=== PATIENT | female | born 1940 | race Caucasian/White ===

== ENCOUNTER → 2016-03-06 | Outpatient (CLI) | payer MEDICARE | LOC: RAD 12:07 | PROVIDERS: ATTEND Family Medicine | DX: M25.551 Pain in right hip (principal) ==

== ENCOUNTER → 2016-06-21 | Outpatient (CLI) | payer MEDICARE | LOC: WI 09:04 | PROVIDERS: ATTEND Family Medicine | DX: Z12.31 Encounter for screening mammogram for malignant neoplasm of breast (principal); Z78.0 Asymptomatic menopausal state; M85.88 Other specified disorders of bone density and structure, other site | CPT/HCPCS: 77080; G0202; 77067 ==

== ENCOUNTER → 2017-06-09 | Outpatient (CLI) | payer MEDICARE ==
--- NOTE | 2017-06-09 12:27 | RADIOLOGY REPORT (SQ) ---
EXAM DESCRIPTION: CHEST 2 VIEWS COMPLETED DATE/TIME: 06/09/2017 10:26 am REASON FOR STUDY: CHRONIC OBSTRUCTIVE PULMONARY DISEASE W (ACUTE) EXACERBATION COMPARISON: 11/26/2013 EXAM PARAMETERS: NUMBER OF VIEWS: two views TECHNIQUE: Digital Frontal and Lateral radiographic views of the chest acquired. RADIATION DOSE: NA LIMITATIONS: none FINDINGS: LUNGS AND PLEURA: No opacities, masses or pneumothorax. No pleural effusion. MEDIASTINUM AND HILAR STRUCTURES: No masses or contour abnormalities. HEART AND VASCULAR STRUCTURES: Heart normal size. No evidence for failure. BONES: No acute findings. HARDWARE: None in the chest. OTHER: No other significant finding. IMPRESSION: NO ACUTE RADIOGRAPHIC FINDING IN THE CHEST. TECHNICAL DOCUMENTATION: JOB ID: [id number] [employer]- All Rights Reserved Reading location - IP/workstation name: [email or web address]
== END ==
LOC: RAD 10:09
PROVIDERS: ATTEND Family Medicine
DX: J44.1 Chronic obstructive pulmonary disease with (acute) exacerbation (principal)
CPT/HCPCS: 71046

== ENCOUNTER → 2017-07-16 | Outpatient (CLI) | payer MEDICARE ==
--- NOTE | 2017-07-16 13:05 | RADIOLOGY REPORT (SQ) ---
EXAM DESCRIPTION: CT CHEST WITHOUT COMPLETED DATE/TIME: 07/16/2017 10:14 am REASON FOR STUDY: EMPHYSEMA (J43.9) J43.9 EMPHYSEMA, UNSPECIFIED COMPARISON: CT chest 06/15/2011 Chest films 06/09/2017 TECHNIQUE: CT scan performed of the chest without intravenous contrast. Images reviewed with lung, soft tissue and bone windows. Reconstructed coronal and sagittal MPR images reviewed. All images st ored on PACS. All CT scanners at this facility use dose modulation, iterative reconstruction, and/or weight based d osing when appropriate to reduce radiation dose to as low as reasonably achievable (ALARA). [facility]: Dose Right [facility]: CareDose [facility]: Dose Right [facility]: Teradose 4D [facility]: [id number] RADIATION DOSE: CT Rad equipment meets quality standard of care and radiation dose reduction techniq ues were employed. CTDIvol: 3.5 mGy. DLP: 140 mGy-cm. mGy. LIMITATIONS: No technical limitations. FINDINGS: LUNGS AND PLEURA: Lungs have enlarged centrilobular airspaces particularly at the right kena ng apex worrisome for obstructive disease. Minimal left posterior costophrenic sulcus atelectasis. No pleural effusion. No pulmonary nodules. HILAR AND MEDIASTINAL STRUCTURES: No identified masses or abnormal nodes. No obvious aneurysm. HEART AND VASCULAR STRUCTURES: No aneurysm. No pericardial effusion. UPPER ABDOMEN: No significant findings. Limited exam. THYROID AND OTHER SOFT TISSUES: No masses. No adenopathy. BONES: No acute changes. Mid thoracic disc space loss of height HARDWARE: None in the chest. OTHER: No other significant findings. IMPRESSION: Minimal atelectasis in the left posterior costophrenic sulcus. Mild changes of obstructive lung disease at both apices TECHNICAL DOCUMENTATION: JOB ID: [id number] Quality ID # [id number]: Final reports with documentation of one or more dose reduction techniques (e.g., Au tomated exposure control, adjustment of the mA and/or kV according to patient size, use of iterative reconstruction technique) 2010 [employer]- All Rights Reserved Reading location - IP/workstation name: [email or web address]
== END ==
LOC: RAD 09:40
PROVIDERS: ATTEND Internal Medicine Pulmonary Disease
DX: J43.9 Emphysema, unspecified (principal)
CPT/HCPCS: 71250

== ENCOUNTER 2017-09-18 16:08 | Emergency (ER) | payer MEDICARE ==
[2017-09-18] MEDS ORDERED: NORMAL SALINE 1000 ML 1,000 ML IV ONE (16:26)
[2017-09-18] MEDS ORDERED: KETOROLAC TROMETHAMINE INJ/PF 30 MG/1 ML SDV IV ONE (16:26)
[2017-09-18] MEDS ORDERED: ONDANSETRON HCL INJ/PF 4 MG/2 ML SDV IV ONE (16:26)
--- NOTE | 2017-09-18 16:29 | ER Document Report ---
ED Medical Screen (RME) - General Chief Complaint: Headache Stated Complaint: HEADACHE Time Seen by Provider: 09/18/17 16:26 Mode of Arrival: Wheelchair TRAVEL OUTSIDE OF THE [place] IN LAST 30 DAYS: No - HPI Patient complains to provider of: JULIAN; vomiting Onset: Yesterday - pt with onset of JULIAN yesterday and vomiting times 5 which started earliler today. Doesn't normally get JULIAN. - Related Data Allergies/Adverse Reactions: codeine [Codeine] Allergy (Verified 09/18/17 16:25) Past Medical History - Social History Frequency of alcohol use: None Drug Abuse: None - Past Medical History Cardiac Medical History: Reports: Hx Hypercholesterolemia Pulmonary Medical History: Reports: Hx Asthma, Hx Bronchitis, Hx COPD Denies: Hx Tuberculosis Endocrine Medical History: Reports: Hx Hypothyroidism Renal/ Medical History: Denies: Hx Peritoneal Dialysis Psychiatric Medical History: Reports: Hx Depression Past Surgical History: Reports: Hx Cholecystectomy, Hx Hysterectomy, Hx Orthopedic Surgery - discectomy cervical, Hx Tonsillectomy. Denies: Hx Section, Hx Pacemaker - Immunizations Hx Diphtheria, Pertussis, Tetanus Vaccination: No Physical Exam - Vital signs Vitals: Temp Pulse Resp BP Pulse Ox 99.6 F 99 20 140/83 H 100 09/18/17 16:17 09/18/17 16:17 09/18/17 16:17 09/18/17 16:17 09/18/17 16:17 Course - Vital Signs Vital signs: Temp Pulse Resp BP Pulse Ox 99.6 F 99 20 140/83 H 100 09/18/17 16:17 09/18/17 16:17 09/18/17 16:17 09/18/17 16:17 09/18/17 16:17 Doctor's Discharge - Discharge Referrals: TRACY RAT MD [Primary Care Provider] - Follow up as needed
--- NOTE | 2017-09-18 17:20 | RADIOLOGY REPORT (SQ) ---
EXAM DESCRIPTION: CT HEAD WITHOUT COMPLETED DATE/TIME: 09/18/2017 5:11 pm REASON FOR STUDY: velasquez COMPARISON: September 2012 TECHNIQUE: Axial images acquired through the brain without intravenous contrast. Images reviewed wi th bone, brain and subdural windows. Additional sagittal and coronal reconstructions were generated. Images stored on PACS. All CT scanners at this facility use dose modulation, iterative reconstruction, and/or weight based d osing when appropriate to reduce radiation dose to as low as reasonably achievable (ALARA). [facility]: Dose Right [facility]: CareDose [facility]: Dose Right [facility]: Teradose 4D [facility]: Neumitra RADIATION DOSE: CT Rad equipment meets quality standard of care and radiation dose reduction techniq ues were employed. CTDIvol: 53.2 mGy. DLP: 964 mGy-cm. mGy. LIMITATIONS: None. FINDINGS: VENTRICLES: Prominent. CEREBRUM: No masses. No hemorrhage. No midline shift. Areas of low density in the white matter mos t likely due to chronic micro-vascular ischemic change. No evidence for acute infarction. CEREBELLUM: No masses. No hemorrhage. No alteration of density. No evidence for acute infarction. EXTRAAXIAL SPACES: Mild age-related involutional change. No fluid collections. No masses. ORBITS AND GLOBE: No intra- or extraconal masses. Normal contour of globe without masses. CALVARIUM: No fracture. PARANASAL SINUSES: No fluid or mucosal thickening. SOFT TISSUES: No mass or hematoma. OTHER: Bilateral basal ganglia calcifications are again identified IMPRESSION: MILD CHRONIC CHANGES OF ATROPHY AND MICROVASCULAR ISCHEMIA. NO ACUTE PROCESS. EVIDENCE OF ACUTE STROKE: NO. TECHNICAL DOCUMENTATION: JOB ID: [id number] Quality ID # [id number]: Final reports with documentation of one or more dose reduction techniques (e.g., Au tomated exposure control, adjustment of the mA and/or kV according to patient size, use of iterative reconstruction technique) 2010 [employer]- All Rights Reserved Reading location - IP/workstation name: [email or web address]
[2017-09-18 17:31] LABS: ABSOLUTE BASOPHILS # (AUTO) 0.1 10^3/uL (0.0-0.2); ABSOLUTE EOSINOPHILS # (AUTO) 0.2 10^3/uL (0.0-0.6); ABSOLUTE LYMPHOCYTES (AUTO) 1.2 10^3/uL (0.5-4.7); ABSOLUTE MONOCYTES (AUTO) 0.8 10^3/uL (0.1-1.4); ABSOLUTE NEUT (AUTO) 8.5 10^3/uL (1.7-8.2); BASOPHILS % (AUTO) 0.7 % (0-2); EOSINOPHILS % (AUTO) 2.2 % (0-6); HEMATOCRIT 42.4 % (36.0-47.0); HEMOGLOBIN 14.4 g/dL (12.0-15.5); LYMPHOCYTES % (AUTO) 11.5 % (13-45); MEAN CORPUSCULAR HEMOGLOBIN 30.4 pg (27.0-33.4); MEAN CORPUSCULAR HGB CONC 33.9 g/dL (32.0-36.0); MEAN CORPUSCULAR VOLUME 90 fl (80-97); MONOCYTES % (AUTO) 7.4 % (3-13); PLATELET COUNT 256 10^3/uL (150-450); RED BLOOD COUNT 4.73 10^6/uL (3.72-5.28); RED CELL DISTRIBUTION WIDTH 12.8 % (11.5-14.0); SEGMENTED NEUTROPHILS % (AUTO) 78.2 % (42-78); TOTAL CELLS COUNTED % (AUTO) 100 %; WHITE BLOOD COUNT 10.8 10^3/uL (4.0-10.5)
[2017-09-18 17:49] LABS: ALANINE AMINOTRANSFERASE 27 U/L (9-52); ALBUMIN 4.7 g/dL (3.5-5.0); ALKALINE PHOSPHATASE 78 U/L (38-126); ANION GAP 9 (5-19); ASPARTATE AMINO TRANSFERASE 33 U/L (14-36); BILIRUBIN,DIRECT 0.5 mg/dL (0.0-0.4); BILIRUBIN,TOTAL 0.7 mg/dL (0.2-1.3); BLOOD UREA NITROGEN 18 mg/dL (7-20); CALCIUM 9.7 mg/dL (8.4-10.2); CARBON DIOXIDE 26 mmol/L (22-30); CHLORIDE 109 mmol/L (98-107); GLUCOSE 99 mg/dL (75-110); POTASSIUM 4.7 mmol/L (3.6-5.0); SODIUM 144.2 mmol/L (137-145); TOTAL PROTEIN 7.9 g/dL (6.3-8.2)
[2017-09-18 19:06] VITALS: BP 147/89
[2017-09-18] MEDS ORDERED: PROMETHAZINE HCL 25 MG TABLET PO ONE (19:50)
--- NOTE | 2017-09-18 20:01 | ER Document Report ---
ED Headache - General Chief Complaint: Headache Stated Complaint: HEADACHE Time Seen by Provider: 09/18/17 16:26 Mode of Arrival: Wheelchair Notes: Patient is a 76 year old female that comes to the ED for chief complaint of headache. Headache started yesterday, worsened today, she states she vomited 5 times in the past day. She does not usually get headaches. She denies fever chills, head injury, pain is in the back of her head radiating around to the front. She states headache started out very mild and slowly progressed to become worse. She was treated with Toradol and Zofran in triage, she states her headache is almost completely gone and she finally feels much better. She admits she has not slept well the past couple of nights. She is not on a blood thinner. Past medical history of hypothyroidism, arthritis, takes meloxicam and oxycodone. TRAVEL OUTSIDE OF THE [place] IN LAST 30 DAYS: No - Related Data Allergies/Adverse Reactions: codeine [Codeine] Allergy (Verified 09/18/17 16:25) Past Medical History - General Information source: Patient - Social History Smoking Status: Former Smoker Frequency of alcohol use: None Drug Abuse: None Lives with: Alone Family History: Reviewed & Not Pertinent Patient has suicidal ideation: No Patient has homicidal ideation: No - Past Medical History Cardiac Medical History: Reports: Hx Hypercholesterolemia Pulmonary Medical History: Reports: Hx Asthma, Hx Bronchitis, Hx COPD Denies: Hx Tuberculosis Endocrine Medical History: Reports: Hx Hypothyroidism Renal/ Medical History: Denies: Hx Peritoneal Dialysis Psychiatric Medical History: Reports: Hx Depression Past Surgical History: Reports: Hx Cholecystectomy, Hx Hysterectomy, Hx Orthopedic Surgery - discectomy cervical, Hx Tonsillectomy. Denies: Hx Section, Hx Pacemaker - Immunizations Hx Diphtheria, Pertussis, Tetanus Vaccination: No Hx Pneumococcal Vaccination: 02/18/08 Review of Systems - Review of Systems Constitutional: No symptoms reported EENT: No symptoms reported Cardiovascular: No symptoms reported Respiratory: No symptoms reported Gastrointestinal: See HPI Genitourinary: No symptoms reported Female Genitourinary: No symptoms reported Musculoskeletal: No symptoms reported Skin: No symptoms reported Hematologic/Lymphatic: No symptoms reported Neurological/Psychological: See HPI Physical Exam - Vital signs Vitals: Temp Pulse Resp BP Pulse Ox 99.6 F 99 20 140/83 H 100 09/18/17 16:17 09/18/17 16:17 09/18/17 16:17 09/18/17 16:17 09/18/17 16:17 - Notes Notes: GENERAL: Alert, interacts well. No acute distress. HEAD: Normocephalic, atraumatic. EYES: Pupils equal, round, and reactive to light. Extraocular movements intact. ENT: Oral mucosa moist, tongue midline. NECK: Full range of motion. Supple. Trachea midline. LUNGS: Clear to auscultation bilaterally, no wheezes, rales, or rhonchi. No respiratory distress. HEART: Regular rate and rhythm. No murmur ABDOMEN: Soft, non-tender. Non-distended. Bowel sounds present in all 4 quadrants. EXTREMITIES: Moves all 4 extremities spontaneously. No edema, normal radial and dorsalis pedis pulses bilaterally. No cyanosis. BACK: no cervical, thoracic, lumbar midline tenderness. No saddle anesthesia, normal distal neurovascular exam. NEUROLOGICAL: Alert and oriented x3. Normal speech. [cranial nerves II through XII grossly intact]. PSYCH: Normal affect, normal mood. SKIN: Warm, dry, normal turgor. No rashes or lesions noted. Course - Re-evaluation Re-evalutation: Patient smiling and well-appearing. She states her headache is all completely gone, she feels much better, she wants to go home. I did discuss that her CAT scan was negative but her headache onset was more than 6 hours ago therefore I could not rule out subarachnoid hemorrhage at this time. No nuchal rigidity, fever, or other concerning abnormality suggesting meningitis. However because of gradual symptom onset, lack of sleep, and stressors it does seem more likely that this was migraine in nature. 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 Patient is requesting something by mouth to go home with and sleep, she states that if her headache comes back or she worsens in anyway she will return, she states that she does not want any more evaluation including lumbar puncture at this time. CBC shows mild leukocytosis with elevation of neutrophils, nonspecific with patient's reported vomiting. No fever. Chemistry generally unremarkable. Patient will be discharged with return precautions. Patient states understanding and agreement. - Vital Signs Vital signs: Temp Pulse Resp BP Pulse Ox 98.2 F 80 18 147/89 H 97 09/18/17 19:00 09/18/17 19:00 09/18/17 19:00 09/18/17 19:00 09/18/17 19:00 - Laboratory Result Diagrams: 09/18/17 16:50 09/18/17 16:50 Laboratory results interpreted by me: 09/18/17 09/18/17 16:50 16:50 WBC 10.8 H Seg Neutrophils % 78.2 H Lymphocytes % 11.5 L Absolute Neutrophils 8.5 H Chloride 109 H Est GFR (Non-Af Amer) 58 L Direct Bilirubin 0.5 H Discharge - Discharge Clinical Impression: Headache Qualifiers: Headache type: unspecified Headache chronicity pattern: acute headache Intractability: not intractable Qualified Code(s): R51 - Headache Vomiting Qualifiers: Vomiting type: unspecified Vomiting Intractability: non-intractable Nausea presence: with nausea Qualified Code(s): R11.2 - Nausea with vomiting, unspecified Condition: Stable Disposition: HOME, SELF-CARE Additional Instructions: Your CAT scan of the head does not show any concerning findings. Your neurological exam is normal. Your symptoms and response to treatment are most suggestive of a migraine. Recommendation is to follow-up with your primary care for additional evaluation and management of headaches. Return immediately if you have any concerning or worsening symptoms including severe headache, returned vomiting, fever of 100.4 or greater, weakness or numbness on one side of your body, or any other concerning or worsening symptoms. Referrals: TRACY ART MD [ACTIVE STAFF] - Follow up as needed
== END 2017-09-18 20:03 | disposition home or self-care (01) ==
LOC: ER 16:08
DX: R51 Headache (principal); R11.2 Nausea with vomiting, unspecified; D72.828 Other elevated white blood cell count; J44.9 Chronic obstructive pulmonary disease, unspecified; M19.90 Unspecified osteoarthritis, unspecified site; Z79.1 Long term (current) use of non-steroidal anti-inflammatories (NSAID); Z79.891 Long term (current) use of opiate analgesic; Z87.891 Personal history of nicotine dependence; Z88.5 Allergy status to narcotic agent
CPT/HCPCS: 99284; 96361; 96374; 96375; 36415; 85025; 80053; 70450; J1885; A9270; J2405; J7030

== ENCOUNTER 2017-09-19 11:49 | Inpatient (IN) | payer MEDICARE ==
[2017-09-19] MEDS ORDERED: NORMAL SALINE 1000 ML 1,000 ML IV ONE (12:16)
[2017-09-19] MEDS ORDERED: FENTANYL CITRATE INJ/PF 100 MCG/2 ML AMPUL IV ONE (12:16)
[2017-09-19] MEDS ORDERED: PROCHLORPERAZINE EDISYLATE INJ 10 MG/2 ML VIAL IV ONE (12:16)
--- NOTE | 2017-09-19 12:20 | ER Document Report ---
ED Medical Screen (RME) - General Chief Complaint: Nausea/Vomiting Stated Complaint: VOMITING/NASEUA Time Seen by Provider: 09/19/17 12:06 Notes: 76-year-old female patient to the emergency department for evaluation of headache and nausea and vomiting. Patient was seen here yesterday. Had a CT scan which was negative. States that she continues to have headache and vomiting. Was told there may be a possibility for needing to get a spinal tap and even admitting her to the hospital but patient states that she needed to go so she left. Continues to have a severe headache. Her back is hurting but has chronic back pain but it it is getting worse. I have greeted and performed a rapid initial assessment of this patient. A comprehensive ED assessment and evaluation of the patient, analysis of test results and completion of the medical decision making process will be conducted by additional ED providers. TRAVEL OUTSIDE OF THE [place] IN LAST 30 DAYS: No - HPI Onset: Yesterday - Related Data Allergies/Adverse Reactions: codeine [Codeine] Allergy (Verified 09/18/17 16:25) Past Medical History - Social History Chew tobacco use (# tins/day): No Frequency of alcohol use: None Drug Abuse: None - Past Medical History Cardiac Medical History: Reports: Hx Hypercholesterolemia Pulmonary Medical History: Reports: Hx Asthma, Hx Bronchitis, Hx COPD Denies: Hx Tuberculosis Endocrine Medical History: Reports: Hx Hypothyroidism Renal/ Medical History: Denies: Hx Peritoneal Dialysis Psychiatric Medical History: Reports: Hx Depression Past Surgical History: Reports: Hx Cholecystectomy, Hx Hysterectomy, Hx Orthopedic Surgery - discectomy cervical, Hx Tonsillectomy. Denies: Hx Section, Hx Pacemaker - Immunizations Hx Diphtheria, Pertussis, Tetanus Vaccination: No Physical Exam - Vital signs Vitals: Temp Pulse Resp BP Pulse Ox 99.1 F 104 H 18 140/84 H 97 09/19/17 11:59 09/19/17 11:59 09/19/17 11:59 09/19/17 11:59 09/19/17 11:59 Interpretation: Normal - HEENT Head: Normocephalic, Atraumatic Eyes: Normal Pupils: PERRL - Respiratory Respiratory status: No respiratory distress Chest status: Nontender Breath sounds: Normal Chest palpation: Normal - Cardiovascular Rhythm: Regular Heart sounds: Normal auscultation Murmur: No - Neurological Neuro grossly intact: Yes Cognition: Normal Orientation: AAOx4 Helen Coma Scale Eye Opening: Spontaneous Helen Coma Scale Verbal: Oriented Darryl Coma Scale Motor: Obeys Commands Darryl Coma Scale Total: 15 Speech: Normal Motor strength normal: LUE, RUE, LLE, RLE Sensory: Normal Course - Vital Signs Vital signs: Temp Pulse Resp BP Pulse Ox 99.1 F 104 H 18 140/84 H 97 09/19/17 11:59 09/19/17 11:59 09/19/17 11:59 09/19/17 11:59 09/19/17 11:59 Doctor's Discharge - Discharge Referrals: CHRIS DOWLING MD [Primary Care Provider] - Follow up as needed
[2017-09-19 13:26] LABS: ABSOLUTE BASOPHILS # (AUTO) 0.1 10^3/uL (0.0-0.2); ABSOLUTE MONOCYTES (AUTO) 0.8 10^3/uL (0.1-1.4); ABSOLUTE NEUT (AUTO) 5.9 10^3/uL (1.7-8.2); BASOPHILS % (AUTO) 0.8 % (0-2); EOSINOPHILS % (AUTO) 0.2 % (0-6); HEMATOCRIT 42.4 % (36.0-47.0); HEMOGLOBIN 14.3 g/dL (12.0-15.5); LYMPHOCYTES % (AUTO) 12.9 % (13-45); MEAN CORPUSCULAR HEMOGLOBIN 30.2 pg (27.0-33.4); MEAN CORPUSCULAR HGB CONC 33.8 g/dL (32.0-36.0); MEAN CORPUSCULAR VOLUME 89 fl (80-97); PLATELET COUNT 239 10^3/uL (150-450); RED BLOOD COUNT 4.74 10^6/uL (3.72-5.28); RED CELL DISTRIBUTION WIDTH 12.7 % (11.5-14.0); SEGMENTED NEUTROPHILS % (AUTO) 76.1 % (42-78); TOTAL CELLS COUNTED % (AUTO) 100 %; WHITE BLOOD COUNT 7.7 10^3/uL (4.0-10.5)
[2017-09-19 13:29] LABS: INTERNATIONAL RATION (INR) 0.96; PROTHROMBIN TIME 13.3 SEC (11.4-15.4)
--- NOTE | 2017-09-19 13:51 | ER Document Report ---
ED General - General Chief Complaint: Nausea/Vomiting Stated Complaint: VOMITING/NASEUA Time Seen by Provider: 09/19/17 12:06 TRAVEL OUTSIDE OF THE [place] IN LAST 30 DAYS: No - HPI Notes: Patient is a 76-year-old female with a history of hypothyroidism, chronic low back pain (on meloxicam and oxycodone) who presents to the ED complaining of an ongoing frontal headache and posterior headache with back pain and stiffness in her neck 2 days. Patient was evaluated yesterday evening and states that when she was here she had complete pain relief with medications given, but that was the only time when she did not have a headache. Patient states that she did have associated nausea and vomiting yesterday and just nausea today. She has not been eating or drinking today because of the nausea and decrease in appetite. Patient states that the onset was gradual, and started when she became stressed after receiving unfortunate news. Patient states that her pains do not radiate. Patient is able to ambulate without any difficulties. She is urinating normally and having normal bowel movements. Patient denies any previous history of CVA, TIA, CAD, NE, PE. She had a workup yesterday that was negative which included blood work and a CT scan of the head. Denies any fever, head injury, changes in vision/speech/mentation/hearing, URI, sore throat , chest pain, palpitations, syncope, cough, shortness of breath, wheeze, dyspnea , abdominal pain, diarrhea, urinary retention, dysuria, hematuria, loss of control of bowel or bladder, numbness/tingling, saddle anesthesia, muscle paralysis/weakness, or rash. Pt did receive medication from triage and states that her JULIAN has significantly improved and is feeling much better. - Related Data Allergies/Adverse Reactions: codeine [Codeine] Allergy (Verified 09/18/17 16:25) Past Medical History - Social History Smoking Status: Current Some Day Smoker Chew tobacco use (# tins/day): No Frequency of alcohol use: None Drug Abuse: None Family History: Reviewed & Not Pertinent Patient has suicidal ideation: No Patient has homicidal ideation: No - Past Medical History Cardiac Medical History: Reports: Hx Hypercholesterolemia Pulmonary Medical History: Reports: Hx Asthma, Hx Bronchitis, Hx COPD Denies: Hx Tuberculosis Endocrine Medical History: Reports: Hx Hypothyroidism Renal/ Medical History: Denies: Hx Peritoneal Dialysis Psychiatric Medical History: Reports: Hx Depression Past Surgical History: Reports: Hx Cholecystectomy, Hx Hysterectomy, Hx Orthopedic Surgery - discectomy cervical, Hx Tonsillectomy. Denies: Hx Section, Hx Pacemaker - Immunizations Hx Diphtheria, Pertussis, Tetanus Vaccination: No Hx Pneumococcal Vaccination: 02/18/08 Review of Systems - Review of Systems -: Yes All other systems reviewed and negative Physical Exam - Vital signs Vitals: Temp Pulse Resp BP Pulse Ox 99.1 F 104 H 18 140/84 H 97 09/19/17 11:59 09/19/17 11:59 09/19/17 11:59 09/19/17 11:59 09/19/17 11:59 - Notes Notes: PHYSICAL EXAMINATION: GENERAL: Well-appearing, well-nourished and in no acute distress. A&Ox4. Answers questions appropriately. HEAD: Atraumatic, normocephalic. Non-tender. EYES: Pupils equal round and reactive to light, extraocular movements intact, sclera anicteric, conjunctiva are normal. No nystagmus. vis becerra intact. ENT: EAC clear b/l. TM's intact b/l without erythema, fluid, or perforation. Nares patent and without discharge. oropharynx clear without exudates. No tonsilar hypertrophy or erythema. Moist mucous membranes. No sinus tenderness. NECK: Normal range of motion, supple without lymphadenopathy. Kernig/brudzinski , but pt does have some stiffness with flexion noted. No midline tenderness. LUNGS: Breath sounds clear to auscultation bilaterally and equal. No wheezes rales or rhonchi. HEART: Regular rate and rhythm without murmurs, rubs, gallops. ABDOMEN: Soft, nontender, nondistended abdomen. No guarding, no rebound. Normal bowel sounds present. No CVA tenderness bilaterally. Musculoskeletal: Ext b/l: FROM to passive/active. Strength 5+/5. No deficits noted. No bony tenderness of extremities. Extremities: No cyanosis, clubbing, or edema b/l. Peripheral pulses 2+. Capillary refill less than 2 seconds. NEUROLOGICAL: NIH 0. GCS 15. Cranial nerves grossly intact. Normal speech, normal gait. Normal sensory, motor exams. Reflexes 2+ b/l. JOSE's negative. Pronator drift negative. PSYCH: Normal mood, normal affect. SKIN: Warm, Dry, normal turgor, no rashes or lesions noted. Course - Re-evaluation Re-evalutation: 09/19/17 14:[address] Gardiner who recommends LP to be performed. He asked that I have another provider aide with LP at this time. Dr. Chowdary performed the LP. 09/19/17 15:39 LP performed successfully w/o any complications. 09/19/17 16:57 Recheck on patient. Pt continues to have a JULIAN, but has improved since procedure. it was a 5/5 before the procedure and is now 3/5. Morphine IV ordered. Awaiting lab results. 09/19/17 18:00 Pt found to have a lymphocytic and monocytic meningitis at this time. Poly's on gram stain and no bacteria per lab. Reviewed with Dr. Gardiner. Most likely viral. Viral cultures added and we will start acyclovir IV. Reviewed with the Hospitalist, Dr. Morel who accepted patient to medical floor. Pt/spouse in agreement. - Vital Signs Vital signs: Temp Pulse Resp BP Pulse Ox 99.4 F 82 16 164/71 H 95 09/19/17 16:54 09/19/17 16:54 09/19/17 16:54 09/19/17 16:54 09/19/17 16:54 - Laboratory Result Diagrams: 09/19/17 12:55 Laboratory results interpreted by me: 09/19/17 09/19/17 09/19/17 12:55 15:35 15:35 Lymphocytes % 12.9 L CSF WBC 828 H 823 H Procedures - Lumbar Puncture Lumbar puncture Time completed: 15:35 - performed by Dr. Chowdary Consent obtained: Yes Lumbar puncture pre-procedure: Sterile PPE donned, Chloraprep applied, Sterile drapes applied Patient position: Sitting Needle size: 20 Lumbar puncture location: L4-5 Anesthetic type: 1% Lidocaine mL's of anesthetic: 6 Amount/type of drainage: scant pink tinge, then clear Number of attempts: 1 Complications: No Discharge - Discharge Clinical Impression: Meningitis Condition: Stable Disposition: ADMITTED INPATIENT Admitting Provider: Hospitalist - Dr. Morel Unit Admitted: Medical Floor Referrals: CHRIS DOWLING MD [Primary Care Provider] - Follow up as needed
[2017-09-19] MEDS ORDERED: LIDOCAINE 1% INJ-PF (10 MG/ML) 30 ML SDV INJ ONE (14:10)
[2017-09-19] MEDS ORDERED: MORPHINE SULFATE 10 MG/ML INJ IV ONE (16:54)
[2017-09-19 17:31] LABS: APPEARANCE ALL TUBES CLEAR; COLOR ALL TUBES COLORLESS; CSF TUBE NUMBER 1; VOLUME TUBE 3 2.5 CC
[2017-09-19 17:32] LABS: CSF TOTAL VOLUME 12.5 CC
[2017-09-19 17:34] LABS: RED BLOOD CELL,CSF 32 /uL (0-10)
[2017-09-19 17:35] LABS: WHITE BLOOD CELL,CSF 828 /uL (0-5)
[2017-09-19 17:39] LABS: CSF TUBE NUMBER 4
[2017-09-19 17:40] LABS: APPEARANCE ALL TUBES CLEAR; COLOR ALL TUBES COLORLESS; CSF TOTAL VOLUME 12.5 CC; RED BLOOD CELL,CSF 24 /uL (0-10); VOLUME TUBE 3 2.5 CC
[2017-09-19 17:41] LABS: WHITE BLOOD CELL,CSF 823 /uL (0-5)
[2017-09-19] MEDS ORDERED: ACYCLOVIR SODIUM INJ/PF 500 MG/10 ML SDV IV ONE (17:58)
[2017-09-19 18:39] LABS: GLUCOSE,CSF 48 mg/dL (40-70); PROTEIN,CSF 187 mg/dL (12-60)
[2017-09-19] MEDS ORDERED: ALBUTEROL SULFATE HFA (90 MCG/PUFF) 8 GM MDI (1 MDI/ER DISP) IH PRN (19:04)
[2017-09-19] MEDS ORDERED: CEFTRIAXONE INJ 1000 MG VIAL IV ONE (19:07)
[2017-09-19] MEDS ORDERED: VANCOMYCIN HCL INJ 1000 MG VIAL IV SCH (19:15)
[2017-09-19] MEDS ORDERED: ALBUTEROL SULFATE HFA (90 MCG/PUFF) 200 PUFF/8.5 GM MDI IH PRN (19:23)
--- NOTE | 2017-09-19 19:31 | PDOC H&P ---
History of Present Illness Admission Date/PCP: 09/19/17 18:01 CHRIS DOWLING MD Patient complains of: Headache History of Present Illness: TL STATON is a 76 year old female who has history of hypothyroidism and chronic low back pain presents to the emergency room due to acute onset of 2 day duration frontal headache that was progressive in nature and associated with neck stiffness and subjective fever. This was also associated with vomiting and nausea. She came to the emergency room yesterday and had a CT scan that apparently was unremarkable and was discharged to home but her symptoms did not improve and she came back to the emergency room again. This time she had a lumbar puncture that was positive for pleocytosis with predominant lymphocytosis and glucose of 48 and protein of 187. Past Medical History Cardiac Medical History: Reports: Hyperlipidema Pulmonary Medical History: Reports: Asthma, Bronchitis, Chronic Obstructive Pulmonary Disease (COPD) Denies: Tuberculosis Endocrine Medical History: Reports: Hypothyroidism Psychiatric Medical History: Reports: Depression Hematology: Reports: Anemia Past Surgical History Past Surgical History: Reports: Cholecystectomy, Hysterectomy, Orthopedic Surgery - discectomy cervical, Tonsillectomy Denies: Section, Pacemaker Social History Smoking Status: Current Some Day Smoker Hx Recreational Drug Use: No Hx Prescription Drug Abuse: No Family History Family History: Reviewed & Not Pertinent Parental Family History Reviewed: Yes Children Family History Reviewed: Yes Sibling(s) Family History Reviewed.: Yes Medication/Allergy Home Medications: Albuterol Sulfate [Ventolin HFA MDI 18 GM] 2 puff IH Q8HP PRN 09/19/17 Levothyroxine Sodium [Synthroid] 125 mcg PO Q6AM 09/19/17 Meloxicam [Mobic] 15 mg PO DAILY 09/19/17 Oxycodone HCl [Oxy-Ir 5 mg Tablet] 5 mg PO Q6 09/19/17 Allergies/Adverse Reactions: codeine [Codeine] Allergy (Verified 09/18/17 16:25) Physical Exam Vital Signs: Temp Pulse Resp BP Pulse Ox 99.4 F 82 16 164/71 H 95 09/19/17 16:54 09/19/17 16:54 09/19/17 16:54 09/19/17 16:54 09/19/17 16:54 General appearance: PRESENT: no acute distress Head exam: PRESENT: atraumatic, normocephalic Eye exam: PRESENT: conjunctiva pink, EOMI, PERRLA. ABSENT: scleral icterus Mouth exam: PRESENT: moist, tongue midline Throat exam: ABSENT: post pharyngeal erythema, tonsillar erythema, tonsillar exudate, tonsillogmegaly Neck exam: PRESENT: meningismus. ABSENT: JVD, tenderness, thyromegaly, tracheal deviation, tracheostomy Respiratory exam: PRESENT: clear to auscultation renata. ABSENT: rales, rhonchi, wheezes Cardiovascular exam: PRESENT: RRR. ABSENT: diastolic murmur, rubs, systolic murmur Pulses: PRESENT: normal dorsalis pedis pul Vascular exam: PRESENT: normal capillary refill GI/Abdominal exam: PRESENT: normal bowel sounds, soft. ABSENT: distended, guarding, mass, organolmegaly, rebound, tenderness Extremities exam: PRESENT: full ROM. ABSENT: calf tenderness, clubbing, pedal edema Neurological exam: PRESENT: alert, awake, oriented to person, oriented to place , oriented to time, oriented to situation, CN II-XII grossly intact. ABSENT: motor sensory deficit Psychiatric exam: PRESENT: appropriate affect, normal mood. ABSENT: homicidal ideation, suicidal ideation Skin exam: PRESENT: dry, intact, warm. ABSENT: cyanosis, rash Results Laboratory Results: CSF study shows glucose of 48 and protein 27, White cells 823 with predominant lymphocytosis Impressions: CT scan of the brain was unremarkable Assessment & Plan - Diagnosis (1) Meningitis Is this a current diagnosis for this admission?: Yes Plan: Patient has headache low-grade fever and signs of meningeal irritation No alteration in mental status or hemodynamic instability CSF analysis shows glucose 48 protein 187 white cells 823 was predominant lymphocytosis 84% Most likely viral or aseptic meningitis but in 76 years old smoker with COPD we will start IV vancomycin and ceftriaxone empirically for at least 48 hours Follow CSF culture No suspicious of HSV meningitis so we will defer on IV acyclovir for now considering her renal function IV fluids hydration droplet precautions (2) Headache Plan: Tylenol as needed we will address further if needed (3) Hypothyroidism Plan: Continue levothyroxine (4) COPD (chronic obstructive pulmonary disease) Plan: Continue albuterol as needed (5) Vomiting Qualifiers: Vomiting type: unspecified Vomiting Intractability: non-intractable Nausea presence: with nausea Qualified Code(s): R11.2 - Nausea with vomiting, unspecified Plan: Zofran as needed
[2017-09-19] MEDS: NORMAL SALINE 1000 ML 1,000 ML IV PRN (19:34)
[2017-09-19 19:55] LABS: ALANINE AMINOTRANSFERASE 19 U/L (9-52); ALBUMIN 4.3 g/dL (3.5-5.0); ALKALINE PHOSPHATASE 70 U/L (38-126); ANION GAP 14 (5-19); ASPARTATE AMINO TRANSFERASE 23 U/L (14-36); BILIRUBIN,DIRECT 0.5 mg/dL (0.0-0.4); BILIRUBIN,TOTAL 0.6 mg/dL (0.2-1.3); BLOOD UREA NITROGEN 19 mg/dL (7-20); CALCIUM 9.6 mg/dL (8.4-10.2); CARBON DIOXIDE 22 mmol/L (22-30); CHLORIDE 107 mmol/L (98-107); GLUCOSE 102 mg/dL (75-110); POTASSIUM 4.3 mmol/L (3.6-5.0); SODIUM 143.2 mmol/L (137-145); TOTAL PROTEIN 7.6 g/dL (6.3-8.2)
[2017-09-19] MEDS: OXYCODONE HCL IR 5 MG TABLET PO PRN (20:08)
[2017-09-19] MEDS: TEMAZEPAM 7.5 MG CAPSULE PO PRN (20:08)
[2017-09-19] MEDS: CEFTRIAXONE 2 GM/D5W RTU 2 GM/50 ML RTUPB IV SCH (20:09)
[2017-09-19] MEDS ORDERED: KETOROLAC TROMETHAMINE INJ/PF 30 MG/1 ML SDV IV ONE (21:40)
[2017-09-19] MEDS: VANCOMYCIN HCL 750 MG in DEXTROSE 5%-WATER 250 ML IV SCH (22:10)
[2017-09-19] MEDS: FAMOTIDINE 20 MG TABLET PO SCH (22:10)
[2017-09-19] MEDS: ONDANSETRON HCL INJ/PF 4 MG/2 ML SDV IV PRN (22:11)
[2017-09-20] MEDS: ENOXAPARIN SODIUM INJ 40 MG/0.4 ML DISP.SYRIN SUBCUT SCH ×2 (01:55→10:22)
[2017-09-20] MEDS ORDERED: (PENDING PHARMACY ID) (Levothyroxine Sodium [Synthroid] 125 MCG) PO SCH (06:00)
[2017-09-20] MEDS: OXYCODONE HCL IR 5 MG TABLET PO PRN ×3 (06:01→21:01)
[2017-09-20] MEDS: LEVOTHYROXINE SODIUM 0.1 MG TABLET PO SCH (06:01)
[2017-09-20] MEDS: LEVOTHYROXINE SODIUM 0.025 MG TABLET PO SCH (06:01)
[2017-09-20 06:02] LABS: ABSOLUTE BASOPHILS # (AUTO) 0.1 10^3/uL (0.0-0.2); ABSOLUTE EOSINOPHILS # (AUTO) 0.1 10^3/uL (0.0-0.6); ABSOLUTE NEUT (AUTO) 2.5 10^3/uL (1.7-8.2); BASOPHILS % (AUTO) 0.9 % (0-2); EOSINOPHILS % (AUTO) 2.3 % (0-6); HEMATOCRIT 33.1 % (36.0-47.0); LYMPHOCYTES % (AUTO) 34.6 % (13-45); MEAN CORPUSCULAR HEMOGLOBIN 31.2 pg (27.0-33.4); MEAN CORPUSCULAR HGB CONC 34.9 g/dL (32.0-36.0); MEAN CORPUSCULAR VOLUME 89 fl (80-97); MONOCYTES % (AUTO) 18.3 % (3-13); PLATELET COUNT 166 10^3/uL (150-450); RED BLOOD COUNT 3.71 10^6/uL (3.72-5.28); RED CELL DISTRIBUTION WIDTH 12.7 % (11.5-14.0); SEGMENTED NEUTROPHILS % (AUTO) 43.9 % (42-78); TOTAL CELLS COUNTED % (AUTO) 100 %; WHITE BLOOD COUNT 5.7 10^3/uL (4.0-10.5)
[2017-09-20 06:11] LABS: ALANINE AMINOTRANSFERASE 22 U/L (9-52); ALBUMIN 3.1 g/dL (3.5-5.0); ALKALINE PHOSPHATASE 55 U/L (38-126); ANION GAP 9 (5-19); ASPARTATE AMINO TRANSFERASE 17 U/L (14-36); BILIRUBIN,DIRECT 0.3 mg/dL (0.0-0.4); BILIRUBIN,TOTAL 0.4 mg/dL (0.2-1.3); BLOOD UREA NITROGEN 17 mg/dL (7-20); CALCIUM 8.3 mg/dL (8.4-10.2); CARBON DIOXIDE 21 mmol/L (22-30); CHLORIDE 112 mmol/L (98-107); GLUCOSE 72 mg/dL (75-110); POTASSIUM 4.3 mmol/L (3.6-5.0); SODIUM 141.8 mmol/L (137-145); TOTAL PROTEIN 5.6 g/dL (6.3-8.2)
[2017-09-20 06:54] LABS: HEMOGLOBIN 11.6 g/dL (12.0-15.5)
[2017-09-20 06:57] LABS: APPEARANCE,URINE CLEAR; BILIRUBIN,URINE NEGATIVE (NEGATIVE); COLOR,URINE STRAW; GLUCOSE, URINE NEGATIVE (NEGATIVE); KETONES,URINE TRACE mg/dL (NEGATIVE); LEUKOCYTE ESTERASE,URINE NEGATIVE (NEGATIVE); NITRITE,URINE NEGATIVE (NEGATIVE); PROTEIN,URINE NEGATIVE (NEGATIVE); URINE SPECIFIC GRAVITY 1.008; UROBILINOGEN,URINE NEGATIVE mg/dL (<2.0)
[2017-09-20] MEDS: ONDANSETRON HCL INJ/PF 4 MG/2 ML SDV IV PRN ×2 (08:36→13:29)
[2017-09-20] MEDS: CEFTRIAXONE 2 GM/D5W RTU 2 GM/50 ML RTUPB IV SCH ×2 (09:03→20:47)
[2017-09-20] MEDS: ACETAMINOPHEN 325 MG TABLET PO PRN ×2 (09:03→13:29)
[2017-09-20] MEDS: NORMAL SALINE 1000 ML 1,000 ML IV PRN (09:10)
[2017-09-20] MEDS: KETOROLAC TROMETHAMINE INJ/PF 30 MG/1 ML SDV IV SCH ×2 (10:21→18:54)
[2017-09-20] MEDS: DOCUSATE SODIUM 100 MG CAPSULE PO SCH ×2 (10:22→18:54)
[2017-09-20] MEDS: FAMOTIDINE 20 MG TABLET PO SCH ×2 (10:22→21:42)
--- NOTE | 2017-09-20 14:56 | PDOC PROGRESS REPORT ---
Subjective Progress Note for:: 09/20/17 Subjective:: Patient still complaining of headache there is no meningismus signs present Afebrile and mental status is normal Reason For Visit: MENINGITIS Physical Exam Vital Signs: Temp Pulse Resp BP Pulse Ox 98.7 F 77 14 166/68 H 97 09/20/17 08:11 09/20/17 08:11 09/20/17 08:11 09/20/17 08:11 09/20/17 08:11 Intake & Output 09/19/17 09/20/17 09/21/17 06:59 06:59 06:59 Intake Total 587 665 Balance 587 665 Weight 125 lb 7.088 oz General appearance: PRESENT: cooperative. ABSENT: no acute distress Head exam: ABSENT: atraumatic, normocephalic Eye exam: ABSENT: conjunctival injection, periorbital swelling Throat exam: ABSENT: post pharyngeal erythema Neck exam: ABSENT: JVD, tenderness, thyromegaly Respiratory exam: PRESENT: clear to auscultation renata. ABSENT: rales, rhonchi, wheezes Cardiovascular exam: PRESENT: RRR. ABSENT: diastolic murmur, rubs, systolic murmur Vascular exam: PRESENT: normal capillary refill GI/Abdominal exam: PRESENT: normal bowel sounds, soft. ABSENT: distended, guarding, mass, organolmegaly, rebound, tenderness Extremities exam: PRESENT: full ROM. ABSENT: calf tenderness, clubbing, pedal edema Neurological exam: PRESENT: alert, awake, oriented to person, oriented to place , oriented to time, oriented to situation, CN II-XII grossly intact. ABSENT: motor sensory deficit Results Laboratory Results: 09/20/17 04:52 09/20/17 04:52 09/20/17 09/20/17 09/20/17 04:52 04:52 06:30 WBC 5.7 RBC 3.71 L Hgb 11.6 L D Hct 33.1 L MCV 89 MCH 31.2 MCHC 34.9 RDW 12.7 Plt Count 166 Seg Neutrophils % 43.9 Lymphocytes % 34.6 Monocytes % 18.3 H Eosinophils % 2.3 Basophils % 0.9 Absolute Neutrophils 2.5 Absolute Lymphocytes 2.0 Absolute Monocytes 1.0 Absolute Eosinophils 0.1 Absolute Basophils 0.1 Sodium 141.8 Potassium 4.3 Chloride 112 H Carbon Dioxide 21 L Anion Gap 9 BUN 17 Creatinine 0.87 Est GFR ( Amer) > 60 Est GFR (Non-Af Amer) > 60 Glucose 72 L Calcium 8.3 L Total Bilirubin 0.4 AST 17 ALT 22 Alkaline Phosphatase 55 Total Protein 5.6 L Albumin 3.1 L Urine Color STRAW Urine Appearance CLEAR Urine pH 6.0 Ur Specific [place] 1.008 Urine Protein NEGATIVE Urine Glucose (UA) NEGATIVE Urine Ketones TRACE H Urine Blood SMALL H Urine Nitrite NEGATIVE Ur Leukocyte Esterase NEGATIVE Urine WBC (Auto) 1 Urine RBC (Auto) 1 Assessment & Plan - Diagnosis (1) Meningitis Is this a current diagnosis for this admission?: Yes Plan: continue IV vancomycin and ceftriaxone empirically for at least 48 hours Follow CSF culture (so far no growth) IV fluids hydration droplet precautions (2) Headache Is this a current diagnosis for this admission?: Yes Plan: We will give Toradol and Thorazine as needed (3) Hypothyroidism Is this a current diagnosis for this admission?: Yes Plan: Continue levothyroxine (4) COPD (chronic obstructive pulmonary disease) Is this a current diagnosis for this admission?: Yes Plan: Continue albuterol as needed (5) Vomiting Qualifiers: Vomiting type: unspecified Vomiting Intractability: non-intractable Nausea presence: with nausea Qualified Code(s): R11.2 - Nausea with vomiting, unspecified Is this a current diagnosis for this admission?: Yes Plan: Zofran as needed
[2017-09-20] MEDS: VANCOMYCIN HCL 750 MG in DEXTROSE 5%-WATER 250 ML IV SCH (21:41)
[2017-09-20] MEDS: TEMAZEPAM 7.5 MG CAPSULE PO PRN (21:42)
[2017-09-21] MEDS: KETOROLAC TROMETHAMINE INJ/PF 30 MG/1 ML SDV IV SCH ×5 (00:31→23:54)
[2017-09-21] MEDS: NORMAL SALINE 1000 ML 1,000 ML IV PRN ×2 (03:14→19:35)
[2017-09-21] MEDS: LEVOTHYROXINE SODIUM 0.1 MG TABLET PO SCH (06:27)
[2017-09-21] MEDS: LEVOTHYROXINE SODIUM 0.025 MG TABLET PO SCH (06:27)
[2017-09-21] MEDS: ONDANSETRON HCL INJ/PF 4 MG/2 ML SDV IV PRN ×3 (08:12→22:50)
[2017-09-21] MEDS: CEFTRIAXONE 2 GM/D5W RTU 2 GM/50 ML RTUPB IV SCH ×2 (08:12→23:02)
[2017-09-21] MEDS: OXYCODONE HCL IR 5 MG TABLET PO PRN ×2 (08:12→15:40)
[2017-09-21] MEDS: ACETAMINOPHEN 325 MG TABLET PO PRN ×3 (08:13→22:51)
[2017-09-21] MEDS: FAMOTIDINE 20 MG TABLET PO SCH ×2 (10:40→22:50)
[2017-09-21] MEDS: ENOXAPARIN SODIUM INJ 40 MG/0.4 ML DISP.SYRIN SUBCUT SCH (10:40)
[2017-09-21] MEDS: DOCUSATE SODIUM 100 MG CAPSULE PO SCH ×2 (10:40→17:30)
--- NOTE | 2017-09-21 12:45 | PDOC PROGRESS REPORT ---
Subjective Progress Note for:: 09/21/17 Subjective:: Patient still complaining of headache but slightly better there is no meningismus signs present Afebrile and mental status is normal Reason For Visit: MENINGITIS Physical Exam Vital Signs: Temp Pulse Resp BP Pulse Ox 98.5 F 85 20 164/74 H 98 09/21/17 08:37 09/21/17 08:37 09/21/17 08:37 09/21/17 08:37 09/21/17 08:37 Intake & Output 09/20/17 09/21/17 09/22/17 06:59 06:59 06:59 Intake Total 587 2607 Output Total 1400 Balance 587 1207 Weight 125 lb 7.088 oz 132 lb 4.438 oz General appearance: PRESENT: cooperative. ABSENT: no acute distress Head exam: PRESENT: atraumatic, normocephalic Eye exam: PRESENT: EOMI, PERRLA. ABSENT: conjunctival injection Ear exam: ABSENT: bleeding, drainage Throat exam: ABSENT: post pharyngeal erythema Neck exam: ABSENT: JVD, thyromegaly Respiratory exam: PRESENT: clear to auscultation renata. ABSENT: rales, rhonchi, wheezes Cardiovascular exam: PRESENT: RRR. ABSENT: diastolic murmur, rubs, systolic murmur Pulses: PRESENT: normal dorsalis pedis pul GI/Abdominal exam: PRESENT: normal bowel sounds, soft. ABSENT: distended, guarding, mass, organolmegaly, rebound, tenderness Neurological exam: PRESENT: alert, awake, oriented to person, oriented to place , oriented to time, oriented to situation, CN II-XII grossly intact. ABSENT: motor sensory deficit Results Laboratory Results: 09/20/17 04:52 09/20/17 04:52 Assessment & Plan - Diagnosis (1) Meningitis Is this a current diagnosis for this admission?: Yes Plan: continue IV vancomycin and ceftriaxone empirically DC antibiotics tomorrow if cultures are negative IV fluids hydration droplet precautions (2) Headache Is this a current diagnosis for this admission?: Yes Plan: Toradol and Thorazine as needed (3) Hypothyroidism Is this a current diagnosis for this admission?: Yes Plan: Continue levothyroxine (4) COPD (chronic obstructive pulmonary disease) Is this a current diagnosis for this admission?: Yes Plan: Continue albuterol as needed (5) Vomiting Qualifiers: Vomiting type: unspecified Vomiting Intractability: non-intractable Nausea presence: with nausea Qualified Code(s): R11.2 - Nausea with vomiting, unspecified Is this a current diagnosis for this admission?: Yes Plan: Zofran as needed Resolved
[2017-09-21] MEDS: VANCOMYCIN HCL 750 MG in DEXTROSE 5%-WATER 250 ML IV SCH (21:10)
[2017-09-22] MEDS: LEVOTHYROXINE SODIUM 0.025 MG TABLET PO SCH (05:30)
[2017-09-22] MEDS: LEVOTHYROXINE SODIUM 0.1 MG TABLET PO SCH (05:30)
[2017-09-22] MEDS: KETOROLAC TROMETHAMINE INJ/PF 30 MG/1 ML SDV IV SCH ×4 (05:31→23:47)
[2017-09-22] MEDS: CEFTRIAXONE 2 GM/D5W RTU 2 GM/50 ML RTUPB IV SCH (09:02)
[2017-09-22] MEDS: DOCUSATE SODIUM 100 MG CAPSULE PO SCH ×2 (09:05→17:18)
[2017-09-22] MEDS: FAMOTIDINE 20 MG TABLET PO SCH ×2 (09:07→22:04)
[2017-09-22] MEDS: ENOXAPARIN SODIUM INJ 40 MG/0.4 ML DISP.SYRIN SUBCUT SCH (09:07)
[2017-09-22] MEDS: OXYCODONE HCL IR 5 MG TABLET PO PRN ×2 (09:12→20:18)
[2017-09-22] MEDS: ACETAMINOPHEN 325 MG TABLET PO PRN (09:13)
[2017-09-22] MEDS: CHLORPROMAZINE HCL INJ 25 MG/1 ML AMPULE IV PRN (09:30)
--- NOTE | 2017-09-22 14:00 | PDOC PROGRESS REPORT ---
Subjective Progress Note for:: 09/22/17 Subjective:: Patient still complaining of some headache but overall better there is no meningismus signs present Afebrile and mental status is normal Reason For Visit: MENINGITIS Physical Exam Vital Signs: Temp Pulse Resp BP Pulse Ox 98.6 F 99 17 153/68 H 97 09/22/17 11:04 09/22/17 11:04 09/22/17 11:04 09/22/17 11:04 09/22/17 11:04 Intake & Output 09/21/17 09/22/17 09/23/17 06:59 06:59 06:59 Intake Total 2607 2430 Output Total 1400 1925 Balance 1207 505 Weight 132 lb 4.438 oz 133 lb 6.075 oz General appearance: PRESENT: no acute distress, well-developed, well-nourished Head exam: PRESENT: atraumatic, normocephalic Eye exam: PRESENT: conjunctiva pink, EOMI, PERRLA. ABSENT: scleral icterus Throat exam: ABSENT: post pharyngeal erythema Neck exam: ABSENT: carotid bruit, JVD, lymphadenopathy, thyromegaly Respiratory exam: PRESENT: clear to auscultation renata. ABSENT: rales, rhonchi, wheezes Cardiovascular exam: PRESENT: RRR. ABSENT: diastolic murmur, rubs, systolic murmur Pulses: PRESENT: normal dorsalis pedis pul Vascular exam: PRESENT: normal capillary refill GI/Abdominal exam: PRESENT: normal bowel sounds, soft. ABSENT: distended, guarding, mass, organolmegaly, rebound, tenderness Neurological exam: PRESENT: alert, awake, oriented to person, oriented to place , oriented to time, oriented to situation, CN II-XII grossly intact. ABSENT: motor sensory deficit Results Laboratory Results: 09/20/17 04:52 09/20/17 04:52 Assessment & Plan - Diagnosis (1) Meningitis Is this a current diagnosis for this admission?: Yes Plan: d/c IV vancomycin and ceftriaxone since culture is negative IV fluids hydration droplet precautions (2) Headache Is this a current diagnosis for this admission?: Yes Plan: Toradol and Thorazine as needed (3) Hypothyroidism Is this a current diagnosis for this admission?: Yes Plan: Continue levothyroxine (4) COPD (chronic obstructive pulmonary disease) Is this a current diagnosis for this admission?: Yes Plan: Continue albuterol as needed (5) Vomiting Qualifiers: Vomiting type: unspecified Vomiting Intractability: non-intractable Nausea presence: with nausea Qualified Code(s): R11.2 - Nausea with vomiting, unspecified Is this a current diagnosis for this admission?: Yes Plan: Zofran as needed Resolved
[2017-09-22] MEDS: NORMAL SALINE 1000 ML 1,000 ML IV PRN (15:25)
[2017-09-22] MEDS: ONDANSETRON HCL INJ/PF 4 MG/2 ML SDV IV PRN (17:25)
[2017-09-22] MEDS: TEMAZEPAM 7.5 MG CAPSULE PO PRN (22:04)
[2017-09-23] MEDS: LEVOTHYROXINE SODIUM 0.1 MG TABLET PO SCH (05:25)
[2017-09-23] MEDS: LEVOTHYROXINE SODIUM 0.025 MG TABLET PO SCH (05:25)
[2017-09-23] MEDS: KETOROLAC TROMETHAMINE INJ/PF 30 MG/1 ML SDV IV SCH ×3 (05:25→17:04)
[2017-09-23] MEDS: NORMAL SALINE 1000 ML 1,000 ML IV PRN (06:42)
[2017-09-23] MEDS: DOCUSATE SODIUM 100 MG CAPSULE PO SCH ×2 (11:50→17:02)
[2017-09-23] MEDS: ENOXAPARIN SODIUM INJ 40 MG/0.4 ML DISP.SYRIN SUBCUT SCH (11:52)
[2017-09-23] MEDS: FAMOTIDINE 20 MG TABLET PO SCH ×2 (11:52→22:10)
[2017-09-23] MEDS: OXYCODONE HCL IR 5 MG TABLET PO PRN (17:35)
[2017-09-23] MEDS: ACETAMINOPHEN 325 MG TABLET PO PRN (18:35)
[2017-09-23] MEDS: CHLORPROMAZINE HCL INJ 25 MG/1 ML AMPULE IV PRN (20:15)
--- NOTE | 2017-09-23 22:44 | PDOC PROGRESS REPORT ---
Subjective Progress Note for:: 09/23/17 Subjective:: The patient states that she is feeling much better. She still has some difficulty with standing. Reason For Visit: MENINGITIS Physical Exam Vital Signs: Temp Pulse Resp BP Pulse Ox 99.7 F 91 18 165/75 H 99 09/23/17 15:05 09/23/17 15:05 09/23/17 15:05 09/23/17 15:05 09/23/17 15:05 Intake & Output 09/22/17 09/23/17 09/24/17 06:59 06:59 06:59 Intake Total 2430 2958 975 Output Total 1925 1300 2375 Balance 505 1658 -1400 Weight 60.5 kg 61.6 kg General appearance: PRESENT: no acute distress, cooperative, well-developed, well-nourished Head exam: PRESENT: atraumatic, normocephalic Eye exam: PRESENT: EOMI, PERRLA, other - No scleral injection.. ABSENT: scleral icterus Respiratory exam: PRESENT: other - No increased work of breathing. No wheezes, rales, or rhonchi. No tactile fremitus. Cardiovascular exam: PRESENT: RRR. ABSENT: gallop, rubs, systolic murmur Pulses: PRESENT: other - Diminished distal pulses bilateral. GI/Abdominal exam: PRESENT: normal bowel sounds, soft. ABSENT: distended, hernia, mass, organolmegaly, tenderness Musculoskeletal exam: PRESENT: normal inspection. ABSENT: deformity, tenderness Neurological exam: PRESENT: alert, awake, oriented to person, oriented to place , oriented to time, oriented to situation, CN II-XII grossly intact Psychiatric exam: PRESENT: appropriate affect, normal mood Skin exam: PRESENT: dry, intact, warm Results Laboratory Results: 09/20/17 04:52 09/20/17 04:52 Assessment & Plan - Diagnosis (1) Viral meningitis, unspecified Is this a current diagnosis for this admission?: Yes Plan: Bacgterial memingitis has been ruled out by CSF Cell count, protein, glucose, cultures. I have ordered PCR for HSV on CSF. The patient is feeing much better. IV antibiotics stopped. (2) COPD (chronic obstructive pulmonary disease) Qualifiers: COPD type: unspecified COPD Qualified Code(s): J44.9 - Chronic obstructive pulmonary disease, unspecified Is this a current diagnosis for this admission?: Yes Plan: As needed nebulizer treatments. (3) Cephalgia Qualifiers: Headache type: unspecified Headache chronicity pattern: acute headache Intractability: not intractable Qualified Code(s): R51 - Headache Is this a current diagnosis for this admission?: Yes Plan: This is improved. (4) Headache Qualifiers: Headache type: unspecified Headache chronicity pattern: acute headache Intractability: not intractable Qualified Code(s): R51 - Headache Is this a current diagnosis for this admission?: Yes Plan: Resolving. (5) Hypothyroidism Qualifiers: Hypothyroidism type: acquired Qualified Code(s): E03.9 - Hypothyroidism, unspecified Is this a current diagnosis for this admission?: Yes Plan: Continue synthroid. (6) Vomiting Qualifiers: Vomiting type: unspecified Vomiting Intractability: non-intractable Nausea presence: with nausea Qualified Code(s): R11.2 - Nausea with vomiting, unspecified Is this a current diagnosis for this admission?: Yes Plan: Resolved. - Time Time Spent with patient: 25-34 minutes Medications reviewed and adjusted accordingly: Yes Anticipated discharge: Home - Plan Summary Plan Summary: PT/OT eval and treat.
[2017-09-24] MEDS: KETOROLAC TROMETHAMINE INJ/PF 30 MG/1 ML SDV IV SCH ×4 (03:38→17:22)
[2017-09-24] MEDS: OXYCODONE HCL IR 5 MG TABLET PO PRN ×2 (03:41→23:05)
[2017-09-24] MEDS: CHLORPROMAZINE HCL INJ 25 MG/1 ML AMPULE IV PRN (05:06)
[2017-09-24] MEDS: LEVOTHYROXINE SODIUM 0.1 MG TABLET PO SCH (05:51)
[2017-09-24] MEDS: LEVOTHYROXINE SODIUM 0.025 MG TABLET PO SCH (05:55)
[2017-09-24] MEDS: ENOXAPARIN SODIUM INJ 40 MG/0.4 ML DISP.SYRIN SUBCUT SCH (09:20)
[2017-09-24] MEDS: DOCUSATE SODIUM 100 MG CAPSULE PO SCH ×2 (09:23→17:22)
[2017-09-24] MEDS: ACETAMINOPHEN 325 MG TABLET PO PRN ×2 (09:23→23:02)
[2017-09-24] MEDS: FAMOTIDINE 20 MG TABLET PO SCH ×2 (09:23→23:02)
[2017-09-24] MEDS: LISINOPRIL 10 MG TABLET PO SCH (09:40)
--- NOTE | 2017-09-24 17:41 | PDOC PROGRESS REPORT ---
Subjective Progress Note for:: 09/24/17 Subjective:: The patient is somnolent, but arouseable today. Blood pressures elevated today. Reason For Visit: MENINGITIS Physical Exam Vital Signs: Temp Pulse Resp BP Pulse Ox 97.5 F 100 18 133/60 H 100 09/24/17 15:33 09/24/17 15:33 09/24/17 15:33 09/24/17 15:33 09/24/17 15:33 Intake & Output 09/23/17 09/24/17 09/25/17 06:59 06:59 06:59 Intake Total 2958 1295 1000 Output Total 1300 4475 Balance 1658 -3180 1000 Weight 61.6 kg 61.5 kg General appearance: PRESENT: no acute distress, cooperative Neck exam: PRESENT: full ROM. ABSENT: lymphadenopathy, meningismus, tenderness Respiratory exam: PRESENT: other - No increased work of breathing.. ABSENT: rales, rhonchi, wheezes Cardiovascular exam: PRESENT: RRR, other - No lateral PMI. No thrills.. ABSENT : gallop, rubs, systolic murmur Pulses: PRESENT: normal dorsalis pedis pul GI/Abdominal exam: PRESENT: normal bowel sounds, soft. ABSENT: distended, mass , organolmegaly, tenderness Rectal exam: PRESENT: deferred Extremities exam: PRESENT: full ROM. ABSENT: clubbing, joint swelling, tenderness Musculoskeletal exam: PRESENT: normal inspection. ABSENT: deformity, dislocation Neurological exam: PRESENT: other - Somnolent but arouseable. Psychiatric exam: PRESENT: appropriate affect, normal mood Skin exam: PRESENT: dry, intact, warm Results Laboratory Results: 09/20/17 04:52 09/20/17 04:52 Assessment & Plan - Diagnosis (1) Viral meningitis, unspecified Is this a current diagnosis for this admission?: Yes Plan: Bacterial memingitis has been ruled out by CSF Cell count, protein, glucose, cultures. I have ordered PCR for HSV on CSF. The patient is feeling much better. IV antibiotics stopped. No headache today. (2) COPD (chronic obstructive pulmonary disease) Qualifiers: COPD type: unspecified COPD Qualified Code(s): J44.9 - Chronic obstructive pulmonary disease, unspecified Is this a current diagnosis for this admission?: Yes Plan: As needed nebulizer treatments. (3) Cephalgia Qualifiers: Headache type: unspecified Headache chronicity pattern: acute headache Intractability: not intractable Qualified Code(s): R51 - Headache Is this a current diagnosis for this admission?: Yes Plan: This is resolved. (4) Headache Qualifiers: Headache type: unspecified Headache chronicity pattern: acute headache Intractability: not intractable Qualified Code(s): R51 - Headache Is this a current diagnosis for this admission?: Yes Plan: Resolved (5) Hypothyroidism Qualifiers: Hypothyroidism type: acquired Qualified Code(s): E03.9 - Hypothyroidism, unspecified Is this a current diagnosis for this admission?: Yes Plan: Continue synthroid. (6) Vomiting Qualifiers: Vomiting type: unspecified Vomiting Intractability: non-intractable Nausea presence: with nausea Qualified Code(s): R11.2 - Nausea with vomiting, unspecified Is this a current diagnosis for this admission?: Yes Plan: Resolved. - Time Time Spent with patient: 25-34 minutes Medications reviewed and adjusted accordingly: Yes
[2017-09-24 21:07] LABS: HSV I DNA Negative (Negative)
[2017-09-24] MEDS: METOPROLOL TARTRATE 25 MG TABLET PO SCH (23:02)
[2017-09-24] MEDS: TEMAZEPAM 7.5 MG CAPSULE PO PRN (23:02)
[2017-09-25] MEDS: KETOROLAC TROMETHAMINE INJ/PF 30 MG/1 ML SDV IV SCH ×2 (03:11→05:39)
[2017-09-25] MEDS: LEVOTHYROXINE SODIUM 0.1 MG TABLET PO SCH (05:40)
[2017-09-25] MEDS: LEVOTHYROXINE SODIUM 0.025 MG TABLET PO SCH (05:40)
[2017-09-25 07:09] LABS: HSV II DNA Positive (Negative)
[2017-09-25] MEDS: ENOXAPARIN SODIUM INJ 40 MG/0.4 ML DISP.SYRIN SUBCUT SCH (09:25)
[2017-09-25] MEDS: METOPROLOL TARTRATE 25 MG TABLET PO SCH (09:28)
[2017-09-25] MEDS: LISINOPRIL 10 MG TABLET PO SCH (09:28)
[2017-09-25] MEDS: DOCUSATE SODIUM 100 MG CAPSULE PO SCH ×2 (09:28→18:39)
[2017-09-25] MEDS: FAMOTIDINE 20 MG TABLET PO SCH (09:28)
[2017-09-25] MEDS: ACETAMINOPHEN 325 MG TABLET PO PRN (16:19)
[2017-09-25] MEDS: OXYCODONE HCL IR 5 MG TABLET PO PRN (16:19)
[2017-09-25 16:24] VITALS: BP 155/72
--- NOTE | 2017-09-25 17:11 | Progress Note ---
Provider Note Provider Note: ID Consult Note Asked to review patient's chart by Dr Martinez. Pt not seen or examined. Discussed patient with Dr Martinez via telephone. Ms Ponce is a 76 year old woman who presented on 09/19 with c/o JULIAN and neck stiffness x 2 days, onset of which was gradual and was associated with some nausea but no fever or other symptoms including no change in mentation, vision, URI sx, sore throat, SOB, rash. Pt was afebrile and has remained so throughout hospitalization. Pt noted to have some neck stiffness with flexion but otherwise unremarkable exam on admission. Pt reported headache was improved after having LP in ED and pain medications. Pt had normal peripheral WBC count. CT head w/o contrast without acute process. CSF was clear and colorless with around 800 WBCs that were almost entirely mononuclear cells (around 80% lymphocytes and 20% monocytes) with elevated total protein 187 and glucose >40% of serum. BCx drawn on admission showed no growth. CSF Gram stain showed no organisms and culture no growth in 3 days. 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 Empirically pt had received IV vancomycin and Rocephin pending results. Over the past several days her headache improved and is now resolved. 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 Astutely recognized by the treating provider - Appropriately Rocephin and vancomycin were discontinued with BCx negative and CSF gram stain and cx negative and CSF formula c/w nonbacterial etiology - Acyclovir may have some benefit in immunocompromised patients or if additional neurologic symptoms beyond that of meningitis is present, but otherwise there is no clear role for antiviral therapy. - In the overwhelming majority of patients, HSV-2 meningitis is benign and improves with supportive care and pain management, as has been the case in this patient. No further intervention should be required. Jose Alberto Baron MD [facility] pager [phone]
--- NOTE | 2017-09-25 17:17 | PDOC DISCHARGE SUMMARY ---
General - Admit/Disc Date/PCP Admission Date/Primary Care Provider: 09/19/17 18:01 CHRIS DOWLING MD Discharge Date: 09/25/17 - Discharge Diagnosis (1) Viral meningitis, unspecified Is this a current diagnosis for this admission?: Yes (2) COPD (chronic obstructive pulmonary disease) Is this a current diagnosis for this admission?: Yes (3) Cephalgia Is this a current diagnosis for this admission?: Yes (4) Headache Is this a current diagnosis for this admission?: Yes (5) Hypothyroidism Is this a current diagnosis for this admission?: Yes (6) Vomiting Is this a current diagnosis for this admission?: Yes (7) 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 I have discussed this patient with infectious disease. PCR of her CSF was positive for HSV. Dr. Baron agrees that the patient may be discharged to home on no antivirals. - Additional Information Discharge Diet: Cardiac Discharge Activity: Activity As Tolerated Prescriptions: Lisinopril [Prinivil 10 mg Tablet] 10 mg PO DAILY #30 tablet Metoprolol Tartrate [Lopressor 25 mg Tablet] 25 mg PO Q12 #60 tablet Home Medications: Albuterol Sulfate [Ventolin HFA MDI 18 GM] 2 puff IH Q8HP PRN 09/19/17 Levothyroxine Sodium [Synthroid] 125 mcg PO Q6AM 09/19/17 Oxycodone HCl [Oxy-Ir 5 mg Tablet] 5 mg PO Q6 09/19/17 Lisinopril [Prinivil 10 mg Tablet] 10 mg PO DAILY #30 tablet 09/25/17 Metoprolol Tartrate [Lopressor 25 mg Tablet] 25 mg PO Q12 #60 tablet 09/25/17 History of Present Illness History of Present Illness: TL STATON is a 76 year old female who has history of hypothyroidism and chronic low back pain presents to the emergency room due to acute onset of 2 day duration frontal headache that was progressive in nature and associated with neck stiffness and subjective fever. This was also associated with vomiting and nausea. She came to the emergency room yesterday and had a CT scan that apparently was unremarkable and was discharged to home but her symptoms did not improve and she came back to the emergency room again. This time she had a lumbar puncture that was positive for pleocytosis with predominant lymphocytosis and glucose of 48 and protein of 187. Hospital Course Hospital Course: The patient was admitted to a medical bed. She underwent a lumbar puncture and CSF was sent for evaluation. She had a CSF protein of 187 and a glucose of 48. Although WBC's were elevated at 823, there was a strong lymphocytic predominance. CSF bacterial cultures were negative. Although the patient had initially been started on IV rocephin and vancomycin for bacterial meningitis, this was stopped once it was clear that this was not the case. CSF was sent for PCR for HSV which was negative. I have discussed the patient with Dr. Baron. The patient will be discharged to home without antivirals as her symptoms have completely resolved. Also during her stay the patient had some severe and uncontrolled blood pressures. This was addressed. In fact it took a combination of lisinopril, amlodipine, and metoprolol to control her pressures. She will be discharged to home today in good condition. Physical Exam Vital Signs: Temp Pulse Resp BP Pulse Ox 98.5 F 69 16 155/72 H 98 09/25/17 16:53 09/25/17 16:53 09/25/17 16:53 09/25/17 16:53 09/25/17 16:53 Intake & Output 09/24/17 09/25/17 09/26/17 06:59 06:59 06:59 Intake Total 1295 1798 503 Output Total 4475 650 500 Balance -3180 1148 3 Weight 61.5 kg 58.6 kg General appearance: PRESENT: no acute distress, cooperative, well-developed, well-nourished Respiratory exam: PRESENT: other - No increased work of breathing.. ABSENT: rales, rhonchi, wheezes Cardiovascular exam: PRESENT: RRR, other - No lateral PMI. No thrills.. ABSENT : gallop, rubs, systolic murmur Pulses: PRESENT: normal dorsalis pedis pul GI/Abdominal exam: PRESENT: normal bowel sounds, soft. ABSENT: hernia, mass, organolmegaly, tenderness Rectal exam: PRESENT: deferred Extremities exam: ABSENT: clubbing, pedal edema, tenderness Musculoskeletal exam: PRESENT: normal inspection. ABSENT: deformity, dislocation Neurological exam: PRESENT: alert, awake, oriented to person, oriented to place , oriented to time, oriented to situation, CN II-XII grossly intact, motor sensory deficit Skin exam: PRESENT: dry, intact, warm Results Laboratory Results: 09/20/17 04:52 09/20/17 04:52 09/19/17 21:45 Blood Blood Culture - Final NO GROWTH IN 5 DAYS 09/19/17 19:56 Blood Blood Culture - Final NO GROWTH IN 5 DAYS 09/19/17 21:45 Blood Culture - Final Blood NO GROWTH IN 5 DAYS 09/19/17 19:56 Blood Culture - Final Blood NO GROWTH IN 5 DAYS 09/19/17 15:35 Viral Culture - Preliminary Cerebral Spinal Fluid - Csf 09/19/17 15:35 Gram Stain - Final Cerebral Spinal Fluid - Csf CSF Culture - Final NO GROWTH 3 DAYS Qualifiers - * PATIENT BEING DISCHARGED WITH ANY OF THE FOLLOWING DIAGNOSIS: No Plan Discharge Plan: The patient will be discharged to home. Time Spent: Greater than 30 Minutes
== END 2017-09-25 18:56 | disposition home or self-care (01) | DRG 76 ==
LOC: ER 11:49 → EH 18:01 → 4N 23:34
PROVIDERS: ADMIT Internal Medicine; ATTEND Internal Medicine
PROC: 009U3ZX Drainage of Spinal Canal, Percutaneous Approach, Diagnostic (ICD-10-PCS; principal; 2017-09-19)
DX: B00.3 Herpesviral meningitis (principal); I10 Essential (primary) hypertension; J44.9 Chronic obstructive pulmonary disease, unspecified; R51 Headache; E03.9 Hypothyroidism, unspecified; G89.29 Other chronic pain; M54.5 Low back pain; E78.00 Pure hypercholesterolemia, unspecified; F32.9 Major depressive disorder, single episode, unspecified; D64.9 Anemia, unspecified; F17.210 Nicotine dependence, cigarettes, uncomplicated; Z79.899 Other long term (current) drug therapy; Z90.49 Acquired absence of other specified parts of digestive tract; Z90.710 Acquired absence of both cervix and uterus; Z88.6 Allergy status to analgesic agent
CPT/HCPCS: 36415; 70450; 80053; 81001; 82945; 84157; 84484; 85025; 85610; 85730; 87040; 87070; 87205; 87252; 87529; 89050; 96361; 96374; 96375; 99284; G8978-GP; G8979-GP; J0133; J0696; J0780; J1650; J1885; J2270; J2405; J3010; J3230; J3370; J3490; J7030; J7060

== ENCOUNTER → 2018-02-24 | Outpatient (CLI) | payer MEDICARE ==
--- NOTE | 2018-02-24 16:16 | RADIOLOGY REPORT (SQ) ---
EXAM DESCRIPTION: CHEST PA/LATERAL COMPLETED DATE/TIME: 02/24/2018 4:08 pm REASON FOR STUDY: PRE-OP COMPARISON: 06/09/2017. EXAM PARAMETERS: NUMBER OF VIEWS: two views TECHNIQUE: Digital Frontal and Lateral radiographic views of the chest acquired. RADIATION DOSE: NA LIMITATIONS: none FINDINGS: LUNGS AND PLEURA: No opacities, masses or pneumothorax. No pleural effusion. MEDIASTINUM AND HILAR STRUCTURES: No masses or contour abnormalities. HEART AND VASCULAR STRUCTURES: Heart normal size. No evidence for failure. BONES: No acute findings. HARDWARE: Hardware in the cervical spine. Clips in the upper abdomen. OTHER: No other significant finding. IMPRESSION: NO SIGNIFICANT RADIOGRAPHIC FINDING IN THE CHEST. TECHNICAL DOCUMENTATION: JOB ID: [id number] [employer]- All Rights Reserved Reading location - IP/workstation name: [email or web address]
[2018-02-24 16:41] LABS: ABSOLUTE BASOPHILS # (AUTO) 0.1 10^3/uL (0.0-0.2); ABSOLUTE EOSINOPHILS # (AUTO) 0.4 10^3/uL (0.0-0.6); ABSOLUTE LYMPHOCYTES (AUTO) 1.7 10^3/uL (0.5-4.7); ABSOLUTE MONOCYTES (AUTO) 0.9 10^3/uL (0.1-1.4); BASOPHILS % (AUTO) 0.9 % (0-2); HEMATOCRIT 36.8 % (36.0-47.0); HEMOGLOBIN 12.7 g/dL (12.0-15.5); MEAN CORPUSCULAR HEMOGLOBIN 31.5 pg (27.0-33.4); MEAN CORPUSCULAR HGB CONC 34.4 g/dL (32.0-36.0); MEAN CORPUSCULAR VOLUME 92 fl (80-97); MONOCYTES % (AUTO) 8.7 % (3-13); PLATELET COUNT 289 10^3/uL (150-450); RED BLOOD COUNT 4.02 10^6/uL (3.72-5.28); RED CELL DISTRIBUTION WIDTH 13.1 % (11.5-14.0); SEGMENTED NEUTROPHILS % (AUTO) 69.4 % (42-78); TOTAL CELLS COUNTED % (AUTO) 100 %
[2018-02-24 16:42] LABS: APPEARANCE,URINE CLEAR; BILIRUBIN,URINE NEGATIVE (NEGATIVE); COLOR,URINE YELLOW; GLUCOSE, URINE NEGATIVE (NEGATIVE); KETONES,URINE NEGATIVE (NEGATIVE); LEUKOCYTE ESTERASE,URINE TRACE (NEGATIVE); NITRITE,URINE NEGATIVE (NEGATIVE); PROTEIN,URINE NEGATIVE (NEGATIVE); URINE SPECIFIC GRAVITY 1.011; UROBILINOGEN,URINE NEGATIVE mg/dL (<2.0)
[2018-02-24 17:03] LABS: ANION GAP 8 (5-19); BLOOD UREA NITROGEN 18 mg/dL (7-20); CALCIUM 9.1 mg/dL (8.4-10.2); CARBON DIOXIDE 28 mmol/L (22-30); CHLORIDE 103 mmol/L (98-107); GLUCOSE 107 mg/dL (75-110); POTASSIUM 4.2 mmol/L (3.6-5.0); SODIUM 138.7 mmol/L (137-145)
--- NOTE | 2018-02-24 18:50 | EKG REPORT ---
SEVERITY:- NORMAL ECG - SINUS RHYTHM : Confirmed by: Jeff Zayas MD 24-Feb-2018 18:50:18
== END ==
LOC: OD 15:18
PROVIDERS: ATTEND Orthopaedic Surgery
DX: Z01.810 Encounter for preprocedural cardiovascular examination (principal); Z01.812 Encounter for preprocedural laboratory examination; Z01.818 Encounter for other preprocedural examination
CPT/HCPCS: 36415; 71046; 80048; 81001; 85025; 93005; 93010

== ENCOUNTER → 2018-03-02 | Outpatient (CLI) | payer MEDICARE ==
[2018-03-04 14:40] LABS: ANTICHROMATIN AB <0.2 AI (0.0-0.9); CENTROMERE B AB <0.2 AI (0.0-0.9); JO-1 ANTIBODY (ANACOMP) <0.2 AI (0.0-0.9); SJOGREN'S ANTI-SS-B AB <0.2 AI (0.0-0.9); SJOGREN'S SS-A ANTIBODY <0.2 AI (0.0-0.9)
[2018-03-04 15:26] LABS: DNA DOUBLE STRAND ANTIBODY ANA <1 IU/mL (0-9)
[2018-03-04 16:40] LABS: CYTOPLASMIC (C-ANCA) <1:20 titer (Neg:<1:20)
[2018-03-05 07:08] LABS: ATYPICAL PANCA <1:20 titer (Neg:<1:20); PERINUCLEAR (P-ANCA) <1:20 titer (Neg:<1:20)
== END ==
LOC: OD 15:47
PROVIDERS: ATTEND Internal Medicine Pulmonary Disease
DX: R06.00 Dyspnea, unspecified (principal)
CPT/HCPCS: 36415; 86021; 86225; 86235; 86430

== ENCOUNTER 2018-03-16 08:45 | Inpatient (IN) | payer MEDICARE ==
[~2018-03-16 08:45] MED LIST: BUPIVACAINE HCL/DEX-WATER/PF 15 MG/2 ML AMPULE ONE; BUPIVACAINE INJ/PF LIPOSOME/PF 266 MG/20 ML SDV INJ PRN; CEFAZOLIN INJ 1 GM VIAL INJ PRN; IBUPROFEN 800 MG in NORMAL SALINE 250 ML IV PRN; LANSOPRAZOLE 15 MG TAB.RAP.DR PO PRN; OXYCODONE HCL SR 10 MG TABLET PO PRN; RINGERS SOLUTION,LACTATED 1,000 ML IV PRN; VANCOMYCIN HCL 1,000 MG in DEXTROSE 5%-WATER 250 ML IV PRN
[2018-03-16] MEDS ORDERED: OXYCODONE HCL SR 10 MG TABLET PO ONE (10:25)
[2018-03-16] MEDS ORDERED: CEFAZOLIN INJ 1 GM VIAL ONE (10:25)
[2018-03-16] MEDS ORDERED: LANSOPRAZOLE 15 MG TAB.RAP.DR ONE (10:25)
[2018-03-16] MEDS ORDERED: THROMBIN (BOVINE) TOPICAL 20000 UNIT VIAL ONE (10:53)
[2018-03-16] MEDS ORDERED: BUPIVACAINE HCL 0.25 % INJ/PF (2.5 MG/1 ML) 30 ML VIAL ONE (10:53)
[2018-03-16] MEDS ORDERED: MIDAZOLAM 2 MG/2 ML INJ ONE (10:55)
[2018-03-16] MEDS ORDERED: ONDANSETRON HCL INJ/PF 4 MG/2 ML SDV ONE (10:55)
[2018-03-16] MEDS ORDERED: TRANEXAMIC ACID INJ/PF 1,000 MG/10 ML SDV IV ONE ×2 (10:55→15:00)
[2018-03-16] MEDS ORDERED: EPHEDRINE SULFATE INJ 50 MG/1 ML AMPULE ONE (10:55)
[2018-03-16] MEDS ORDERED: FENTANYL CITRATE INJ/PF 100 MCG/2 ML AMPUL ONE (10:55)
[2018-03-16] MEDS ORDERED: PROPOFOL INJ 200 MG/20 ML VIAL IV ONE (10:56)
[2018-03-16] MEDS ORDERED: BUPIVACAINE HCL 0.5%-EPI 1:200000 INJ/PF 30 ML VIAL ONE (11:20)
[2018-03-16] MEDS ORDERED: PROMETHAZINE HCL INJ 25 MG/1 ML VIAL IV PRN ×2 (12:16)
[2018-03-16] MEDS ORDERED: ONDANSETRON HCL INJ/PF 4 MG/2 ML SDV IV PRN ×2 (12:16→12:43)
[2018-03-16] MEDS ORDERED: DIPHENHYDRAMINE HCL 50 MG/ML VIAL IV PRN ×2 (12:16→12:43)
[2018-03-16] MEDS ORDERED: FENTANYL CITRATE INJ/PF 100 MCG/2 ML AMPUL IV PRN ×3 (12:16)
[2018-03-16] MEDS ORDERED: MEPERIDINE HCL/PF INJ 25 MG/1 ML DISP.SYRIN IV PRN (12:16)
--- NOTE | 2018-03-16 12:42 | Operative Report ---
Operative Report DATE OF SURGERY: 03/16/18 PREOPERATIVE DIAGNOSIS: Right hip arthritis OPERATION: Right hip arthroplasty SURGEON: MARY JANE HARO ANESTHESIA: Spinal TISSUE REMOVED OR ALTERED: Femoral head to pathology ESTIMATED BLOOD LOSS: 100 PROCEDURE: Implants used: Femur: Size 4 Nickerson Accolade 2 stem Acetabular shell: 54 mm hemispherical shell Liner: 36 mm flat cross-link polyethylene liner Head: 36 mm chrome cobalt head standard neck The patient is placed in a left lateral decubitus position on the operating table. The right lower extremity and hindquarter is prepped and draped in a sterile fashion. A curvilinear incision was made over the greater trochanter a posterior approach the hip was taken. The femoral head is dislocated and the femoral neck transected using an oscillating saw. Attention was next turned to the acetabulum. Soft tissues cleared off the acetabulum using electrocautery. The acetabulum was then prepared using a series of hemispherical reamers until a 54 millimeters reamer is seated. Subsequently a 54 millimeters Sabino titanium hemispherical shell is impacted into position. A standard flat 36 millimeters cross-link liner is impacted into the shell. Attention was next turned to the femur. Access is gained to the femoral canal using a box osteotome to the piriformis fossa. The femur is then prepared using a series of broaches until a number 4 broach is seated. A trial reduction was now performed using a 36 millimeters head with standard neck. Preoperative leg length was recreated and is excellent anterior posterior stability. A decision was made to proceed with the above construct. All trial implants were removed. The wound is irrigated with pulsed lavage. A number 4 stem is impacted into the femoral canal. A trial reduction was again performed with a 36 mm head and a standard neck. Findings as previously. The hip was dislocated one last time and the final chrome-cobalt head is impacted onto the trunnion. The hip was reduced. Wound is copiously irrigated with pulsed lavage. Sent closed in layers using interrupted Vicryl followed by kaveh. A sterile dressing is applied and the patient's returned to recovery room in satisfactory patient.
[2018-03-16] MEDS ORDERED: ONDANSETRON 4 MG TAB.RAPDIS PO PRN (12:43)
[2018-03-16] MEDS ORDERED: RINGERS SOLUTION,LACTATED 1,000 ML IV PRN (12:43)
[2018-03-16] MEDS ORDERED: MORPHINE SULFATE 10 MG/ML INJ IV PRN ×3 (12:43)
[2018-03-16] MEDS ORDERED: MAG HYDROX/AL HYDROX/SIMETH SUSP 30 ML UDCUP PO PRN (12:43)
--- NOTE | 2018-03-16 13:46 | RADIOLOGY REPORT (SQ) ---
EXAM DESCRIPTION: PELVIS AP COMPLETED DATE/TIME: 03/16/2018 1:14 pm REASON FOR STUDY: Post Op Long Cassette in PACU M16.11 UNILATERAL PRIMARY OSTEOARTHRITIS, RIGHT HI P COMPARISON: None. NUMBER OF VIEWS: One view TECHNIQUE: Digital radiographic images of the pelvis post-procedure LIMITATIONS: None. FINDINGS: BONES: No worrisome or unexpected findings post-procedure. DEVICE: Bi-polar prothesis. Device appears in appropriate location. SOFT TISSUES: No worrisome findings. Expected postoperative soft tissue changes. IMPRESSION: SATISFACTORY POSTOPERATIVE PELVIS. TECHNICAL DOCUMENTATION: JOB ID: [id number] [employer]- All Rights Reserved Reading location - IP/workstation name: [email or web address]
[2018-03-16] MEDS: ASPIRIN 81 MG TABLET, ENT COATED PO SCH (15:25)
[2018-03-16] MEDS: MORPHINE SULFATE 10 MG/ML INJ IV PRN (16:22)
[2018-03-16] MEDS: OXYCODONE HCL IR 5 MG TABLET PO PRN (16:36)
[2018-03-16] MEDS ORDERED: (PENDING PHARMACY ID) (Duloxetine Hcl [Duloxetine Hcl] 60 MG) PO SCH (18:00)
[2018-03-16] MEDS: SENNOSIDES/DOCUSATE 8.6-50 MG 1 EACH TABLET PO SCH (18:09)
[2018-03-16] MEDS ORDERED: ACETAMINOPHEN 1,000 MG/100 ML RTUPB IV ONE (18:30)
[2018-03-16] MEDS ORDERED: ACETAMINOPHEN 100 ML IV ONE (18:43)
[2018-03-16] MEDS: IBUPROFEN 800 MG in NORMAL SALINE 250 ML IV SCH (20:12)
[2018-03-16] MEDS: OXYCODONE HCL SR 10 MG TABLET PO SCH (21:14)
[2018-03-16] MEDS: DULOXETINE HCL 30 MG CAPSULE.DR PO SCH (21:14)
[2018-03-16] MEDS: ZOLPIDEM TARTRATE 5 MG TABLET PO PRN (21:14)
[2018-03-17] MEDS ORDERED: VANCOMYCIN HCL 1,000 MG in DEXTROSE 5%-WATER 250 ML IV ONE (01:00)
[2018-03-17] MEDS: OXYCODONE HCL IR 5 MG TABLET PO PRN ×2 (01:59→18:45)
[2018-03-17] MEDS: IBUPROFEN 800 MG in NORMAL SALINE 250 ML IV SCH ×3 (02:50→18:49)
[2018-03-17] MEDS: MORPHINE SULFATE 10 MG/ML INJ IV PRN (03:53)
[2018-03-17] MEDS: LEVOTHYROXINE SODIUM 0.025 MG TABLET PO SCH (05:38)
[2018-03-17] MEDS: LEVOTHYROXINE SODIUM 0.1 MG TABLET PO SCH (05:39)
[2018-03-17] MEDS: LANSOPRAZOLE 30 MG TAB.RAP.DR PO SCH (05:39)
[2018-03-17] MEDS ORDERED: (PENDING PHARMACY ID) (Levothyroxine Sodium [Synthroid] 125 MCG) PO SCH (06:00)
--- NOTE | 2018-03-17 06:35 | PDOC PROGRESS REPORT ---
Subjective Progress Note for:: 03/17/18 Reason For Visit: RIGHT HIP ARTHRITIS 77-year-old white female now postop day 1 status post right hip arthroplasty. Patient ambulated 15 feet with physical therapy yesterday. Complaining of discomfort this morning. Physical Exam Vital Signs: Temp Pulse Resp BP Pulse Ox 37.1 C 86 17 113/57 L 94 03/16/18 22:00 03/16/18 22:00 03/16/18 22:00 03/16/18 22:00 03/16/18 22:00 Intake & Output 03/15/18 03/16/18 03/17/18 06:59 06:59 06:59 Intake Total 7168 Output Total 2550 Balance 4618 Weight 58.9 kg Physical Exam: Thin relatively spry appearing white female lying comfortably in bed. She is alert oriented and appropriate. General appearance: PRESENT: no acute distress, thin Head exam: PRESENT: normocephalic Respiratory exam: PRESENT: unlabored Cardiovascular exam: PRESENT: RRR Pulses: PRESENT: +1 pedal pulses bilateral Vascular exam: PRESENT: normal capillary refill GI/Abdominal exam: PRESENT: soft Rectal exam: PRESENT: deferred Extremities exam: PRESENT: other - Right hip dressing clean dry and intact. Leg lengths are equal. Distal neurovascular examination is intact. Neurological exam: PRESENT: alert, awake, oriented to person, oriented to place, oriented to time, oriented to situation. ABSENT: motor sensory deficit Psychiatric exam: PRESENT: appropriate affect, normal mood. ABSENT: homicidal ideation, suicidal ideation Skin exam: PRESENT: dry, intact, warm. ABSENT: cyanosis, rash Results Laboratory Results: 03/16/18 10:19 Blood Type A POSITIVE Antibody Screen NEGATIVE Impressions: Pelvis X-Ray 03/16/18 12:44 IMPRESSION: SATISFACTORY POSTOPERATIVE PELVIS. Status: Imported from PACS Assessment & Plan - Diagnosis (1) Arthritis of right hip Is this a current diagnosis for this admission?: Yes Plan: Status post total arthroplasty with an uneventful appropriate postoperative course. Ambulates with physical therapy and weightbearing as tolerated basis. Anticipate care home facility placement when bed available. - Time Time Spent with patient: 15-24 minutes Anticipated discharge: SNF Within: when bed available
[2018-03-17 06:48] LABS: HEMATOCRIT 29.4 % (36.0-47.0); HEMOGLOBIN 10.1 g/dL (12.0-15.5); MEAN CORPUSCULAR HEMOGLOBIN 31.6 pg (27.0-33.4); MEAN CORPUSCULAR HGB CONC 34.3 g/dL (32.0-36.0); MEAN CORPUSCULAR VOLUME 92 fl (80-97); PLATELET COUNT 165 10^3/uL (150-450); RED BLOOD COUNT 3.19 10^6/uL (3.72-5.28); RED CELL DISTRIBUTION WIDTH 13.6 % (11.5-14.0); WHITE BLOOD COUNT 8.6 10^3/uL (4.0-10.5)
[2018-03-17 07:10] LABS: ANION GAP 5 (5-19); BLOOD UREA NITROGEN 14 mg/dL (7-20); CALCIUM 8.2 mg/dL (8.4-10.2); CARBON DIOXIDE 27 mmol/L (22-30); CHLORIDE 106 mmol/L (98-107); GLUCOSE 95 mg/dL (75-110); POTASSIUM 4.2 mmol/L (3.6-5.0); SODIUM 137.8 mmol/L (137-145)
[2018-03-17] MEDS: ACETAMINOPHEN 325 MG TABLET PO PRN (08:29)
[2018-03-17] MEDS: PRENATAL VITAMIN W DHA CAPSULE PO SCH (09:47)
[2018-03-17] MEDS: DULOXETINE HCL 30 MG CAPSULE.DR PO SCH ×2 (09:48→22:43)
[2018-03-17] MEDS: ASPIRIN 81 MG TABLET, ENT COATED PO SCH (09:48)
[2018-03-17] MEDS: OXYCODONE HCL SR 10 MG TABLET PO SCH ×2 (09:49→22:43)
[2018-03-17] MEDS: SENNOSIDES/DOCUSATE 8.6-50 MG 1 EACH TABLET PO SCH ×2 (09:49→18:47)
[2018-03-17] MEDS ORDERED: TRANEXAMIC ACID INJ/PF 1,000 MG/10 ML SDV IV ONE (19:36)
[2018-03-18] MEDS: ZOLPIDEM TARTRATE 5 MG TABLET PO PRN ×2 (01:15→22:41)
[2018-03-18] MEDS: IBUPROFEN 800 MG in NORMAL SALINE 250 ML IV SCH ×2 (01:24→19:34)
[2018-03-18] MEDS: LEVOTHYROXINE SODIUM 0.025 MG TABLET PO SCH (05:16)
[2018-03-18] MEDS: LANSOPRAZOLE 30 MG TAB.RAP.DR PO SCH (05:16)
[2018-03-18] MEDS: LEVOTHYROXINE SODIUM 0.1 MG TABLET PO SCH (05:16)
--- NOTE | 2018-03-18 07:13 | PDOC PROGRESS REPORT ---
Subjective Progress Note for:: 03/18/18 Reason For Visit: RIGHT HIP ARTHRITIS 77-year-old white female status post right hip arthroplasty now postop day 2. Patient comfortable, ambulatory, and awaiting residential facility placement tomorrow. Physical Exam Vital Signs: Temp Pulse Resp BP Pulse Ox 37.3 C 99 17 143/77 H 95 03/17/18 23:00 03/17/18 23:00 03/17/18 23:00 03/17/18 23:00 03/17/18 23:00 Intake & Output 03/17/18 03/18/18 03/19/18 06:59 06:59 06:59 Intake Total 7168 2943 Output Total 2550 Balance 4618 2943 Weight 58.9 kg 60.4 kg General appearance: PRESENT: no acute distress Head exam: PRESENT: normocephalic Respiratory exam: PRESENT: unlabored Cardiovascular exam: PRESENT: RRR Pulses: PRESENT: +1 pedal pulses bilateral Vascular exam: PRESENT: normal capillary refill Musculoskeletal exam: PRESENT: other - Right hip dressing clean dry and intact. Leg lengths are equal. Distal neurovascular examination is intact. Neurological exam: PRESENT: alert, awake, oriented to person, oriented to place, oriented to time, oriented to situation. ABSENT: motor sensory deficit Psychiatric exam: PRESENT: appropriate affect, normal mood. ABSENT: homicidal ideation, suicidal ideation Skin exam: PRESENT: dry, intact, warm. ABSENT: cyanosis, rash Results Laboratory Results: 03/17/18 05:55 03/17/18 05:55 03/17/18 05:55 Sodium 137.8 Potassium 4.2 Chloride 106 Carbon Dioxide 27 Anion Gap 5 BUN 14 Creatinine 0.98 Est GFR ( Amer) > 60 Est GFR (Non-Af Amer) 55 L Glucose 95 Calcium 8.2 L Impressions: Pelvis X-Ray 03/16/18 12:44 IMPRESSION: SATISFACTORY POSTOPERATIVE PELVIS. Status: Imported from PACS Assessment & Plan - Diagnosis (1) Arthritis of right hip Is this a current diagnosis for this admission?: Yes Plan: Mobilizing with physical therapy and weightbearing as tolerated basis. Anticipate discharge to a residential facility tomorrow. - Time Time Spent with patient: 15-24 minutes Anticipated discharge: SNF Within: when bed available
[2018-03-18 07:17] LABS: HEMATOCRIT 30.5 % (36.0-47.0); HEMOGLOBIN 10.4 g/dL (12.0-15.5); MEAN CORPUSCULAR HEMOGLOBIN 31.3 pg (27.0-33.4); MEAN CORPUSCULAR HGB CONC 34.1 g/dL (32.0-36.0); MEAN CORPUSCULAR VOLUME 92 fl (80-97); PLATELET COUNT 156 10^3/uL (150-450); RED BLOOD COUNT 3.32 10^6/uL (3.72-5.28)
[2018-03-18] MEDS: OXYCODONE HCL SR 10 MG TABLET PO SCH (09:45)
[2018-03-18] MEDS: PRENATAL VITAMIN W DHA CAPSULE PO SCH (09:45)
[2018-03-18] MEDS: SENNOSIDES/DOCUSATE 8.6-50 MG 1 EACH TABLET PO SCH ×2 (09:45→19:35)
[2018-03-18] MEDS: ASPIRIN 81 MG TABLET, ENT COATED PO SCH (09:45)
[2018-03-18] MEDS: DULOXETINE HCL 30 MG CAPSULE.DR PO SCH ×2 (09:47→21:18)
[2018-03-18] MEDS: OXYCODONE HCL IR 5 MG TABLET PO PRN (12:50)
[2018-03-18] MEDS: MORPHINE SULFATE 10 MG/ML INJ IV PRN (16:30)
[2018-03-19] MEDS: OXYCODONE HCL IR 5 MG TABLET PO PRN ×3 (00:35→15:43)
[2018-03-19 05:36] LABS: HEMATOCRIT 26.7 % (36.0-47.0); HEMOGLOBIN 9.3 g/dL (12.0-15.5); MEAN CORPUSCULAR HEMOGLOBIN 31.6 pg (27.0-33.4); MEAN CORPUSCULAR VOLUME 90 fl (80-97); PLATELET COUNT 141 10^3/uL (150-450); RED BLOOD COUNT 2.95 10^6/uL (3.72-5.28); RED CELL DISTRIBUTION WIDTH 13.1 % (11.5-14.0); WHITE BLOOD COUNT 8.5 10^3/uL (4.0-10.5)
[2018-03-19] MEDS: LANSOPRAZOLE 30 MG TAB.RAP.DR PO SCH (05:36)
[2018-03-19] MEDS: LEVOTHYROXINE SODIUM 0.025 MG TABLET PO SCH (05:36)
[2018-03-19] MEDS: LEVOTHYROXINE SODIUM 0.1 MG TABLET PO SCH (05:36)
--- NOTE | 2018-03-19 06:47 | PDOC TRANSFER SUMMARY ---
General - Admit/Disc Date/PCP Admission Date/Primary Care Provider: 03/16/18 09:32 CHRIS DOWLING MD Discharge Date: 03/19/18 - Discharge Diagnosis (1) Arthritis of right hip Is this a current diagnosis for this admission?: Yes - Additional Information Resuscitation Status: Full Code Home Medications: Levothyroxine Sodium [Synthroid] 125 mcg PO Q6AM 09/19/17 Acetaminophen [Tylenol] 650 mg PO ASDIR PRN 02/25/18 Duloxetine HCl 60 mg PO BID 02/25/18 Fluticasone/Vilanterol [Breo Ellipta 200-25 Mcg INH] 1 puff IN DAILY 02/25/18 Ibuprofen/Diphenhydramine HCl [Ibuprofen Pm Softgel] 1 cap PO ASDIR PRN 02/25/18 Melatonin 10 mg PO ASDIR PRN 02/25/18 Meloxicam [Mobic] 15 mg PO DAILY 02/25/18 Multivitamin/Iron/Folic Acid [Multi-Day Plus Iron Tablet] 1 tab PO DAILY 02/25/18 Albuterol Sulfate [Ventolin Hfa 8 gm Mdi (1 Mdi/ER Disp)] 2 puff IH QIDP PRN 03/16/18 Oxycodone HCl 5 mg PO QID PRN 03/16/18 History of Present Illness Admission Date/PCP: 03/16/18 09:32 CHRIS DOWLING MD History of Present Illness: YULIET STATON is a 77 year old female 77-year-old white female with progressive right hip pain and functional disability second osteoarthritis. Patient is admitted for elective right hip arthroplasty. Hospital Course Hospital Course: Patient is admitted through the operating where she goes undergoes uncomplicated right hip arthroplasty. She is returned to floor in satisfactory condition. She makes excellent progress with physical therapy ambulating and weightbearing as tolerated basis. Pain is well controlled with oral analgesics. Physical Exam Vital Signs: Temp Pulse Resp BP Pulse Ox 37.0 C 91 17 128/62 H 94 03/19/18 00:00 03/19/18 00:00 03/19/18 00:00 03/19/18 00:00 03/19/18 00:00 Intake & Output 03/17/18 03/18/18 03/19/18 06:59 06:59 06:59 Intake Total 7168 2943 1623 Output Total 2550 400 Balance 4618 2943 1223 Weight 58.9 kg 60.4 kg 62.4 kg General appearance: PRESENT: no acute distress Head exam: PRESENT: normocephalic Respiratory exam: PRESENT: unlabored Cardiovascular exam: PRESENT: RRR Pulses: PRESENT: +1 pedal pulses bilateral Vascular exam: PRESENT: normal capillary refill GI/Abdominal exam: PRESENT: soft Rectal exam: PRESENT: deferred Musculoskeletal exam: PRESENT: other - Right hip dressing remains clean dry and intact. Leg lengths are equal. Distal neurovascular examination is intact. Neurological exam: PRESENT: alert, awake, oriented to person, oriented to place, oriented to time, oriented to situation. ABSENT: motor sensory deficit Psychiatric exam: PRESENT: appropriate affect, normal mood. ABSENT: homicidal ideation, suicidal ideation Skin exam: PRESENT: dry, intact, warm. ABSENT: cyanosis, rash Results Laboratory Results: 03/19/18 05:28 03/17/18 05:55 03/18/18 03/19/18 06:17 05:28 WBC 10.0 8.5 RBC 3.32 L 2.95 L Hgb 10.4 L 9.3 L Hct 30.5 L 26.7 L MCV 92 90 MCH 31.3 31.6 MCHC 34.1 35.0 RDW 13.0 13.1 Plt Count 156 141 L Impressions: Pelvis X-Ray 03/16/18 12:44 IMPRESSION: SATISFACTORY POSTOPERATIVE PELVIS. Status: Imported from PACS Transfer Plan - Disposition Transfer Plan: Patient to be transferred to a fdc facility for physical therapy aimed at weightbearing as triangulation and fdc for wound care. Dressing can be changed on a as needed basis. Qualifiers - * PATIENT BEING DISCHARGED WITH ANY OF THE FOLLOWING DIAGNOSIS: No VTE patient discharged on overlapping Therapy?: Yes Plan Discharge Plan: Transfer to fdc facility when bed available. Follow-up with Dr. Lizarraga [facility] for surgery in 2 weeks for staple removal.
[2018-03-19] MEDS: DULOXETINE HCL 30 MG CAPSULE.DR PO SCH (10:25)
[2018-03-19] MEDS: ASPIRIN 81 MG TABLET, ENT COATED PO SCH (10:26)
[2018-03-19] MEDS: PRENATAL VITAMIN W DHA CAPSULE PO SCH (10:26)
[2018-03-19] MEDS: SENNOSIDES/DOCUSATE 8.6-50 MG 1 EACH TABLET PO SCH (10:26)
[2018-03-19] MEDS: ACETAMINOPHEN 325 MG TABLET PO PRN (12:19)
[2018-03-19 16:28] VITALS: BP 136/59
== END 2018-03-19 18:30 | disposition short-term general hospital (02) | DRG 470 ==
LOC: INOR 09:32 → 4S 14:13
PROVIDERS: ADMIT Orthopaedic Surgery; ATTEND Orthopaedic Surgery
PROC: 0SR902A Replacement of Right Hip Joint with Metal on Polyethylene Synthetic Substitute, Uncemented, Open Approach (ICD-10-PCS; principal; 2018-03-16 11:15)
DX: M16.11 Unilateral primary osteoarthritis, right hip (principal); F17.210 Nicotine dependence, cigarettes, uncomplicated; J44.9 Chronic obstructive pulmonary disease, unspecified; Z79.899 Other long term (current) drug therapy; Z88.6 Allergy status to analgesic agent; Z90.710 Acquired absence of both cervix and uterus; Z82.61 Family history of arthritis; Z80.9 Family history of malignant neoplasm, unspecified; Z82.49 Family history of ischemic heart disease and other diseases of the circulatory system
CPT/HCPCS: 01214; 36415; 72170; 80048; 85027; 86850; 86900; 86901; 88304; 88311; 94799; C1776; J0131; J0690; J1741; J2250; J2270; J2405; J2704; J3010; J3370; J3490; J7050; J7060; S0119

== ENCOUNTER → 2018-07-16 | Outpatient (CLI) | payer MEDICARE ==
--- NOTE | 2018-07-16 11:12 | RADIOLOGY REPORT (SQ) ---
EXAM DESCRIPTION: CT CHEST WITHOUT COMPLETED DATE/TIME: 07/16/2018 10:34 am REASON FOR STUDY: DYSPNEA (R06.00) Z87.891 PERSONAL HISTORY OF NICOTINE DEPENDENCE R06.00 DYSPNEA, UNSPECIFIED COMPARISON: 07/16/2017 TECHNIQUE: CT scan performed of the chest without intravenous contrast. Images reviewed with lung, soft tissue and bone windows. Reconstructed coronal and sagittal MPR images reviewed. All images st ored on PACS. All CT scanners at this facility use dose modulation, iterative reconstruction, and/or weight based d osing when appropriate to reduce radiation dose to as low as reasonably achievable (ALARA). [facility]: Dose Right [facility]: CareDose [facility]: Dose Right [facility]: Teradose 4D [facility]: [employer] Technologies RADIATION DOSE: CT Rad equipment meets quality standard of care and radiation dose reduction techniq ues were employed. CTDIvol: 4.2 mGy. DLP: 167 mGy-cm. mGy. LIMITATIONS: No technical limitations. FINDINGS: LUNGS AND PLEURA: There is atelectasis in both lung bases right greater than left. No con solidation. Mild apical emphysematous changes which is stable from prior study. No suspicious pulmo nary nodules. HILAR AND MEDIASTINAL STRUCTURES: No identified masses or abnormal nodes. No obvious aneurysm. HEART AND VASCULAR STRUCTURES: No aneurysm. No pericardial effusion. UPPER ABDOMEN: No significant findings. Limited exam. THYROID AND OTHER SOFT TISSUES: No masses. No adenopathy. BONES: No significant finding. HARDWARE: None in the chest. OTHER: No other significant findings. IMPRESSION: Mild emphysematous changes in the lung apices stable from 2018. No acute findings in th e chest. TECHNICAL DOCUMENTATION: JOB ID: [id number] Quality ID # [id number]: Final reports with documentation of one or more dose reduction techniques (e.g., Au tomated exposure control, adjustment of the mA and/or kV according to patient size, use of iterative reconstruction technique) 2010 [employer]- All Rights Reserved Reading location - IP/workstation name: [email or web address]
== END ==
LOC: RAD 09:52
PROVIDERS: ATTEND Internal Medicine Pulmonary Disease
DX: J44.9 Chronic obstructive pulmonary disease, unspecified (principal); R06.00 Dyspnea, unspecified; R94.2 Abnormal results of pulmonary function studies; J43.9 Emphysema, unspecified; Z87.891 Personal history of nicotine dependence
CPT/HCPCS: 71250

== ENCOUNTER 2018-10-29 07:00 | Day surgery (SDC) | payer MEDICARE ==
[2018-10-29] MEDS ORDERED: FENTANYL CITRATE INJ/PF 100 MCG/2 ML AMPUL ONE (07:31)
[2018-10-29] MEDS ORDERED: DIPHENHYDRAMINE HCL 50 MG/ML VIAL ONE (07:31)
[2018-10-29] MEDS ORDERED: ONDANSETRON HCL INJ/PF 4 MG/2 ML SDV ONE (07:31)
[2018-10-29] MEDS ORDERED: MIDAZOLAM 2 MG/2 ML INJ ONE (07:31)
[2018-10-29] MEDS ORDERED: FLUMAZENIL INJ 0.5 MG/5 ML VIAL ONE (07:32)
[2018-10-29] MEDS ORDERED: EPINEPHRINE INJ 1 MG/10 ML DISP.SYRIN ONE (07:32)
[2018-10-29] MEDS ORDERED: GLUCAGON,HUMAN RECOMB 1 MG INJ ONE (07:32)
[2018-10-29] MEDS ORDERED: NALOXONE HCL INJ/PF 0.4 MG/1 ML SDV ONE (07:32)
[2018-10-29] MEDS ORDERED: MIDAZOLAM 2 MG/2 ML INJ IV ONE ×6 (07:46→08:24)
[2018-10-29] MEDS ORDERED: FENTANYL CITRATE INJ/PF 50 MCG/1 ML 50 ML SDV IV ONE ×4 (07:46→08:22)
--- NOTE | 2018-10-29 08:46 | Discharge Summary ---
Discharge Summary (SDC) - Discharge Final Diagnosis: Internal and external hemorrhoids Date of Surgery: 10/29/18 Discharge Date: 10/29/18 Condition: Good Treatment or Instructions: [facility] [place] [id number] POST ENDOSCOPY DISCHARGE INSTRUCTIONS 1. Diet: Start clear liquids that a regular diet as tolerated. 2. Resume all preoperative medications. All oral anticoagulants and aspirins can be resumed 24 hours after procedure. 3. If a polypectomy was performed some bleeding per rectum may occur. This should stop within 3 days. If not, please contact the office. 4. If you had a colonoscopy you may experience some bloating and delayed return of normal bowel function for several days, your regular bowel movement pattern should resume within a week. 5. Please contact [facility] at to make an appointment with Dr. Phan for 1 to 3 weeks following procedure. 6. If you have any questions or concerns regarding your care,treatment plan or follow up, please contact our office. 7. Per clinical guidelines, and patient's age, patient will not require a repeat screening colonoscopy. Referrals: CHRIS DOWLING MD [Primary Care Provider] - Discharge Diet: As Tolerated Discharge Activity: Activity As Tolerated Home Care Assistance: None Needed Report the Following to Your Physician Immediately: Shortness of Breath, Increase in Pain, Fever over 101 Degrees
--- NOTE | 2018-10-29 08:49 | Operative Report ---
Operative Report DATE OF SURGERY: 10/29/18 PREOPERATIVE DIAGNOSIS: 1. Screening for colorectal carcinoma. 2. History of internal hemorrhoids POSTOPERATIVE DIAGNOSIS: Normal colonoscopy except for internal/external hemorrhoids OPERATION: Total colonoscopy to cecum with photodocumentation SURGEON: JANIYA HUGHES ANESTHESIA: Moderate Sedation TISSUE REMOVED OR ALTERED: None COMPLICATIONS: None ESTIMATED BLOOD LOSS: None INTRAOPERATIVE FINDINGS: See below PROCEDURE: Obtaining informed consent the patient was taken from the preoperative holding area to the main endoscopy suite where monitoring devices were attached to the patient. Plan and surgical timeout were conducted The patient was placed in the left lateral decubitus position with knees to chest. A perianal examination was performed. There were external hemorrhoids edematous. There was no visible or palpable anorectal pathology. Sphincter tone was felt to be normal. The flexible adult colonoscope was advanced through the anal rectal canal, all the way to the cecum. Visualization of the cecum was achieved and the ileocecal valve, the appendiceal orifice and transillumination of the anterior abdominal wall were initiated. This was an excellent study on the well-prepped bowel. Patient has a history of chronic pain syndrome, on OxyContin 4-6 times a day. She did require 7 mg of Versed 125 mcg of fentanyl. The colonoscope was withdrawn slowly and methodically checked and the mucosa carefully. There was no evidence of tumor, stricture, bleeding or polyp. There was no evidence of diverticuloses. The scope was slowly withdrawn through the anal rectal canal. There were internal and external hemorrhoids, nonthrombosed complete visualization of the rectum was achieved with photodocumentation. The scope was withdrawn to the patient's anus. The patient tolerated the procedure well and was taken to the recovery area in stable condition. Based on patient's age, she will not require a repeat screening colonoscopy unless she develops symptoms.
[2018-10-29 09:34] VITALS: BP 129/61
== END 2018-10-29 09:34 | disposition home or self-care (01) ==
LOC: END 07:00
PROVIDERS: ATTEND Surgery
DX: Z12.11 Encounter for screening for malignant neoplasm of colon (principal); K64.4 Residual hemorrhoidal skin tags; K64.8 Other hemorrhoids; E03.9 Hypothyroidism, unspecified; F17.210 Nicotine dependence, cigarettes, uncomplicated; Z79.51 Long term (current) use of inhaled steroids; Z79.899 Other long term (current) drug therapy; Z87.820 Personal history of traumatic brain injury
CPT/HCPCS: G0105; J2250; J3010; 45378; J0171; J1200; J1610; J2310; J2405; J3490

== ENCOUNTER → 2018-12-18 | Outpatient (CLI) | payer MEDICARE ==
--- NOTE | 2018-12-18 14:10 | RADIOLOGY REPORT (SQ) ---
EXAM DESCRIPTION: CHEST PA/LATERAL COMPLETED DATE/TIME: 12/18/2018 1:51 pm REASON FOR STUDY: PRODUCTIVE COUGH COMPARISON: 02/24/2018 TECHNIQUE: Frontal and lateral radiographic views of the chest acquired. NUMBER OF VIEWS: Two view. LIMITATIONS: None. FINDINGS: LUNGS AND PLEURA: No pneumothorax. No consolidation or pleural effusion. MEDIASTINUM AND HILAR STRUCTURES: Stable. HEART AND VASCULAR STRUCTURES: Stable. BONES: No acute findings. HARDWARE: None in the chest. OTHER: No other significant finding. IMPRESSION: NO ACUTE FINDINGS. TECHNICAL DOCUMENTATION: JOB ID: [id number] 2010 [employer] All Rights Reserved Reading location - IP/workstation name: [employer]
== END ==
LOC: OD 13:38
PROVIDERS: ATTEND Internal Medicine Pulmonary Disease
DX: R05 Cough (principal)
CPT/HCPCS: 71046